=== PATIENT | male | born 1985 | race African-American/Black ===

== ENCOUNTER 2017-11-05 08:53 | Emergency (ER) | payer OTHER, MEDICAID, SELFPAY ==
[2017-11-05 08:54] VITALS: BP 144/79; PULSE 70; RESP 16; TEMP 36.8; O2SAT 98; BMI 29.5
--- NOTE | 2017-11-05 09:03 | RAD_ITS ---
STUDY: X-RAY - LEFT ANKLE REASON FOR EXAM: Male, 32 years old. Ankle trauma yesterday. TECHNIQUE: 3 view(s) of the ankle. COMPARISON: None. FINDINGS: Osseous alignments are anatomic. The ankle mortise is preserved. There is no acute fracture lucency. There is no cortical step-off. There is mild nonspecific lateral soft tissue swelling. RAD/Ankle min 3 Views IMPRESSION: No radiographically evident acute osseous abnormality. Mild nonspecific lateral soft tissue swelling. Electronically Signed: Jonny Gibson MD at 9:33 EDT , Service support ,
--- NOTE | 2017-11-05 09:06 | ED.DCSUM_ITS ---
- ER Visit Summary Date of Service: 11/05/17 Chief Complaint: Injury left ankle History of Present Illness: The patient is a 32 M who presents to the emergency part with left ankle pain secondary to injury that occurred yesterday while playing basketball. He had a plantar inversion mechanism injury. He localizes the pain to the left ankle. He states movement and weightbearing causes discomfort. He states he is unable to ambulate. He denies paresthesia, anesthesia or motor weakness. He has no other complaints. Please read written note. Physical Examination: Vital signs are marked for an elevated blood pressure 144/ 79. Does appear uncomfortable. The left ankle is swollen. There is pain no patient distal 2-3 cm lateral malleolus. There is no discomfort over the medial malleolus. There is no pain palpation over the base of the fifth metatarsal. DP and PT pulses are palpable. There is no laxity with drawer testing. Test Results: Three-view x-ray of the ankle reveals soft tissue swelling with out evidence of fracture, subluxation or widening of the mortise. Emergency Department Course and Treatment: X-ray of the ankle was obtained to evaluate for fracture. He was medicated with Naprosyn 500 mg and one [place] tablet. Treatment Plan: Ice, elevation and anti-inflammatory medication Disposition: Discharge to home Impression: Acute anterior talofibular left ankle sprain This note was generated with Cine[employer] dictation software. It may contain incorrect words, spelling, and punctuation that were not noted in review of the chart prior to signing ED Disposition - Plan for ED Patient: Disposition: Home or Assisted Living Chief Complaint: Lower Extremity Injury Instructions: ED Sprain Ankle W X Ray Prescriptions: Naproxen [Naprosyn] 500 mg PO BID #10 tab Referrals: Denny Benton MD [Primary Care Provider] - 10-14 Days if not better Additional Instructions: Apply ice 20-30 minutes at a time 6-8 times a day for the next 2-3 days. Drawing the alphabet with your foot 4-6 times a day. Take Naprosyn for discomfort. You may have pain for 1-4 weeks. Recommend no inclines, latter work until pain free. Your prescription was electronically transmitted to [facility]
[2017-11-05] MEDS: Naproxen 500 MG Tablet PO (09:13)
[2017-11-05] MEDS: HYDROcodone Bitartrate/Apap 5/325 Tablet PO (09:13)
[2017-11-05 10:16] VITALS: PULSE 84; RESP 18; O2SAT 99
--- NOTE | 2017-11-05 10:17 | ED.RN ---
THIS NURSE REVIEWED D/C INSTRUCTIONS WITH PT. PT VERBALIZED UNDERSTANDING OF INSTRUCTIONS. PT DENIES FURTHER NEEDS OR QUESTIONS AT THIS TIME. PT AMBULATES FROM ROOM ON OWN WITHOUT ASSISTANCE FROM STAFF
== END 2017-11-05 10:18 | disposition home or self-care (01) ==
PROVIDERS: Emergency Provider Emergency Medicine; Family Provider Family Medicine; PCP Family Medicine
DX: S93.492A Sprain of other ligament of left ankle, initial encounter (principal); X50.1XXA Overexertion from prolonged static or awkward postures, initial encounter; Y93.67 Activity, basketball; Y92.9 Unspecified place or not applicable; Y99.9 Unspecified external cause status; Z72.0 Tobacco use
CPT/HCPCS: 73610; 99283

== ENCOUNTER 2018-11-12 08:47 | Emergency (ER) | payer OTHER, SELFPAY ==
[2018-11-12 08:48] VITALS: BP 144/80; PULSE 68; RESP 18; TEMP 36.6; O2SAT 99; BMI 28.7
--- NOTE | 2018-11-12 08:56 | ED.VIS.GEN ---
History of Present Illness Chief Complaint: Abscess Informant: Patient Onset: Weeks Context: Gradual Onset Timing: Continuous Quality: Bump anterior left neck Location: Anterior left neck Current Severity: annoyance Worsened by: Nothing Relieved by: Nothing Associated Symptoms: No associated symptoms Narrative: Patient has a bump left anterior neck that has gotten larger in size. He denies fever, chills, night sweats or weight loss. He denies history rheumatic fever, murmur, SBE, IV drug use or being immune suppressed. He is not diabetic. He denies change in voice, difficulty swallowing or breathing. Prior similar symptoms: No Recent Illness/Hospitalization: No Past Medical History - Allergies and Home Meds Allergies/Adverse Reactions: Allergies No Known Allergies Allergy (Verified 11/12/18 08:49) Primary Care Physician: Denny Benton MD [Primary Care Provider] - Prior records reviewed: Yes - Prior abscess, buttocks Surgical History: noncontributory Lives: Alone Smoking Status: Current every day smoker Alcohol: None Drugs: None Review of Systems General: Denies: Chills, Fever, Malaise, Sweats, Weight loss ENT: Reports: Sore throat, - - No dysphonia or dysphasia Cardiovascular: Denies: Chest pain, Palpitations Respiratory: Denies: Dyspnea, Cough, Dyspnea on exertion Musculoskeletal: Denies: Myalgias, Arthralgias, Neck pain Skin: Reports: Wounds Hematologic: Denies: Easy bruising, Easy bleeding Allergy: Denies: Uticaria, Swelling of the mouth, Swelling of the tongue Physical Exam Vital Signs/Narrative: Vital Signs Temp Pulse Resp BP Pulse Ox 11/12/18 08:48 97.9 F 68 18 144/80 H 99 Inital Vital Signs reviewed: Yes General: Well nourished, Well developed, No Acute Distress Head: Normocephalic, Atraumatic Eyes: Perrl, EOMI. Negative for: Pale conjunctiva, Scleral icterus, - ENT: Moist mucous membranes, No rhinorrhea, TM's clear Neck: Supple, Nontender, No lymphadenopathy, No JVD, - - Trachea is midline. There is no stridor. There is a palpable mass that probably represents sebaceous cyst versus subcutaneous abscess. Cardiovascular: Regular rate, Regular rhythm, No murmurs, Normal S1, Normal S2 Respiratory: No distress, CTA bilaterally, Chest nontender Skin: Normal color, No rash. Negative for: Cyanosis, Jaundice, Rash Psychological: Normal affect, Normal Mood Diagnostic/Tx/Re-eval - Medical Decision Making Patient has a abscess versus sebaceous cyst anterior left neck. Patient was informed treatment is incision and drainage. Patient was given opportunity ask questions and none were asked. Procedures Procedure(s): The anterior neck was prepped draped sterile manner. The area was anesthetized with 1% lidocaine by local traction. Incision was made with 15 blade. Approximately 1.5 cc of green thick purulent material drained from the site. Blunt dissection was undertaken. Since there is no evidence of cellulitis antibiotics were not prescribed. ED Disposition - Plan for ED Patient: Disposition: Home or Assisted Living Diagnosis: Subcutaneous abscess Instructions: ED Abscess IandD Referrals: Denny Benton MD [Primary Care Provider] - 3-5 Days if not improving
== END 2018-11-12 09:30 | disposition home or self-care (01) ==
PROVIDERS: Emergency Provider Emergency Medicine; Family Provider Family Medicine; PCP Family Medicine
DX: L02.11 Cutaneous abscess of neck (principal); F17.200 Nicotine dependence, unspecified, uncomplicated
CPT/HCPCS: 10060; 99282

== ENCOUNTER 2019-01-07 09:10 | Emergency (ER) | payer OTHER, MEDICAID, SELFPAY ==
[2019-01-07 09:11] VITALS: BP 152/79; PULSE 72; RESP 26; TEMP 36.7; O2SAT 98; BMI 28.4
--- NOTE | 2019-01-07 09:34 | ED.VISSUMM ---
- ER Visit Summary Date of Service: 01/07/19 Chief Complaint: Cough History of Present Illness: The patient is a 33 M history of exercise-induced asthma as a kid but is not a problem lately. He said since Sunday he developed a cough of greenish and yellowish sputum. Burning discomfort when he coughs in his chest. And shortness of breath at times. He denies any exertional chest pain no hemoptysis. Subjectively he thought he had a fever and chills but no documented temperature. No leg pain or swelling. Physical Examination: Well-appearing young male. Vital signs are stable afebrile. Pulse ox 98%. HEENT exam unremarkable. Posterior pharynx moist and pink no erythema or exudate. Neck nontender no JVD no lymphadenopathy. Lungs cough but no rales, rhonchi or wheezing. Heart regular rhythm no murmur. Rate about 70. Abdomen soft nontender. Patient is moving all 4 extremities. Neurovascularly intact. Calves are nontender without edema or cords. Back exam normal. Skin exam normal. Neurologic exam normal. Test Results: Chest x-ray 2 views shows no acute abnormality. No infiltrate. Normal cardiac silhouette. Red blood per myself and radiologist. BGT obtained due to family history of diabetes and patient states he had urinary frequency without any discomfort lately. Emergency Department Course and Treatment: Patient treated with a DuoNeb aerosol. Treatment Plan: Patient with viral bronchitis with bronchospasm.. Prednisone 4 times a day for the next 5 days. Tylenol and/or Motrin for pain. Disposition: Discharge Impression: Acute viral bronchitis This note was generated with [employer] dictation software. It may contain incorrect words, spelling, and punctuation that were not noted in review of the chart prior to signing ED Disposition - Plan for ED Patient: Referrals: Denny Benton MD [Primary Care Provider] -
[2019-01-07] MEDS: Ipratropium/Albuterol Sulfate 3 ML AMPUL.NEB INHALATION (09:44)
[2019-01-07 09:45] VITALS: PULSE 72; RESP 18
--- NOTE | 2019-01-07 10:00 | RAD_ITS ---
STUDY: X-RAY CHEST REASON FOR EXAM: Male, 33 years old. TECHNIQUE: 2 views COMPARISON: None. FINDINGS: The lungs are clear and expanded. There is no demonstrated pleural abnormality. Normal size heart. Normal mediastinum and ivanna. Normal visualized pulmonary arteries. Normal visualized aortic arch and descending thoracic aorta. Normal visualized thoracic spine. Normal visualized ribs, clavicles, and shoulders. There is no demonstrated abnormality of the visualized soft tissue structures of the upper abdomen. RAD/Chest PA and Lateral IMPRESSION: Normal x-ray examination of the chest. Electronically Signed: Simón Tenorio, at 10:15 EDT Tel , Service support ,
--- NOTE | 2019-01-07 10:41 | ED.DEP ---
ED Disposition - Plan for ED Patient: Disposition: Home or Assisted Living Instructions: BRONCHITIS with Wheezing (Adult) Prescriptions: Prednisone [Deltasone] 40 mg PO DAILY 7 Days tab Prescription Printed Azithromycin [Zithromax Z-Mick] 250 mg PO UD #1 box Prescription Printed Referrals: Denny Benton MD [Primary Care Provider] - 1 Week if not improving Additional Instructions: Prednisone daily degree decrease the inflammation in your lungs and the wheezing. Absolutely stop smoking !! Your written a prescription for Zithromax which is an antibiotic most likely this is a virus. You do not need to get that filled unless is not not improving after 1 week.
[2019-01-07 10:59] VITALS: PULSE 97; RESP 16; O2SAT 100
[2019-01-07 11:01] LABS: Bedside Glucose 123 mg/dL (70-110)
== END 2019-01-07 11:00 | disposition home or self-care (01) ==
PROVIDERS: Emergency Provider Emergency Medicine; Family Provider Family Medicine; PCP Family Medicine
DX: J20.8 Acute bronchitis due to other specified organisms (principal); Z72.0 Tobacco use; Z83.3 Family history of diabetes mellitus
CPT/HCPCS: 71046; 82962; 94640; 99282

== ENCOUNTER 2020-11-06 20:55 | Emergency (ER) | payer MEDICAID, SELFPAY ==
[2020-11-06 20:56] VITALS: BP 120/82; PULSE 81; RESP 16; TEMP 36.2; O2SAT 98; BMI 30.2
--- NOTE | 2020-11-06 21:38 | ED.VIS.GEN ---
History of Present Illness Chief Complaint: Wound Informant: Patient Narrative: Patient presents with pain swelling and redness of his left middle finger. He tells me that he has been getting intermittent hard tissue in the creases of his volar finger folds. He states this particular 1 he has been digging at will get hard material out but that it reoccurs. The other ones he tends to did get and they go away. 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 He states that the last night this particular one on his left middle finger became swollen and red and painful. She has had prior MRSA abscesses before. Past Medical History - Allergies and Home Meds Allergies/Adverse Reactions: Allergies No Known Allergies Allergy (Verified 11/06/20 20:58) Primary Care Physician: Angela Recinos MD [NON-STAFF] - As soon as possible Surgical History: noncontributory Lives: Spouse/ Significant Other Smoking Status: Current every day smoker Drugs: None Review of Systems General: Denies: Chills, Fever, Sweats Eyes: Denies: Visual changes - bilaterally, Diplopia ENT: Denies: Rhinorrhea, Sore throat Cardiovascular: Denies: Chest pain, Palpitations Respiratory: Denies: Dyspnea, Cough, Dyspnea on exertion Gastrointestinal: Denies: Abdominal pain, Nausea, Vomiting, Diarrhea, Melena, Hematochezia Genitourinary: Denies: Dysuria, Hematuria, Frequency Musculoskeletal: Reports: Extremity Pain. Denies: Back pain Skin: Reports: Wounds. Denies: Rash Neurological: Denies: Headache, Weakness, Numbness Physical Exam Vital Signs/Narrative: Vital Signs Temp Pulse Resp BP Pulse Ox 11/06/20 20:56 97.1 F L 81 16 120/82 H 98 Inital Vital Signs reviewed: Yes General: Well nourished, Well developed, No Acute Distress Head: Normocephalic, Atraumatic Eyes: Perrl, EOMI ENT: Moist mucous membranes, No rhinorrhea Neck: Supple, Nontender Cardiovascular: Regular rate, Regular rhythm, No murmurs Respiratory: No distress, CTA bilaterally, Chest nontender Abdomen: Soft, Nontender, Nondistended, Normal bowel sounds Back: Nontender, Normal Inspection Extremities: Nontender, No edema Skin: Normal color, No rash, - - Gated on the volar surface of the left middle finger at the DIP joint is an area that appears to be scar tissue that is hard and circular. It has surrounding erythema and mild swelling. Neurological: Alert, Oriented x3, Cranial nerves II-XII grossly intact, Normal Strength, Normal Sensation Psychological: Normal affect, Normal Mood Diagnostic/Tx/Re-eval - Medical Decision Making Patient underwent digital block using 1% lidocaine. Once good anesthesia was present I lifted up the top surface of this hard callused material. After 2 microplanes were made I came to an area of pus. I did not see any obvious foreign bodies. This pus was cultured. I then went underneath that this area of possibly can found granulation-like tissue and excised that to the layer where it seemed that it was normal tissue and mildly bleeding. I question whether or not there could be some microscopic foreign bodies in here at the body is scarring over and trying to expel. But given his redness and swelling I think he most likely also has a cellulitis. Patient was started on Bactrim given his history of MRSA. I have advised that he may need to follow-up with hand surgery or dermatology. His significant other states that they are already patients at dermatology and they will go there first. ED Disposition - Plan for ED Patient: Disposition: Home or Assisted Living Diagnosis: Cellulitis of finger Instructions: ED Cellulitis Prescriptions: Smz/Tmp Ds [Bactrim Ds] 1 tablet PO BID #20 tab Transmission Status: Received by SINDY MCKEON RD Hydrocodone Bitart/Apap 5-325 [[place] 5MG-325MG] 1 tablet PO Q6H PRN PRN 3 Days #10 tablet PRN Reason: Pain Transmission Status: Received by SINDY MCKEON RD Referrals: Angela Recinos MD [NON-STAFF] - As soon as possible
[2020-11-06] MEDS: Lidocaine 1% (20 ml mdv) 20 ML Vial 4 ML INFILT (21:57)
[2020-11-06] MEDS: Smz/Tmp Ds Tablet 1 TABLET PO (21:58)
== END 2020-11-06 22:00 | disposition home or self-care (01) ==
PROVIDERS: Emergency Provider Emergency Medicine; PCP Family Medicine
DX: M79.89 Other specified soft tissue disorders (principal); L03.012 Cellulitis of left finger; Z86.14 Personal history of Methicillin resistant Staphylococcus aureus infection; F17.200 Nicotine dependence, unspecified, uncomplicated
CPT/HCPCS: 87070; 87205; 99283

== ENCOUNTER 2021-01-24 09:10 | Emergency (ER) | payer MEDICAID, SELFPAY ==
[2021-01-24 09:10] VITALS: BP 130/79; PULSE 77; RESP 19; TEMP 36.4; O2SAT 99; BMI 28.1
--- NOTE | 2021-01-24 09:27 | EKG12_ITS ---
Test Reason : CHEST PAIN,SOB Blood Pressure : / mmHG Vent. Rate : 070 BPM Atrial Rate : 070 BPM P-R Int : 172 ms QRS Dur : 082 ms QT Int : 376 ms P-R-T Axes : 063 099 030 degrees QTc Int : 406 ms Normal sinus rhythm Rightward axis Borderline ECG Confirmed by ANITA BROWN, HEIDI ([id number]), visual effects editor TIAGO DONAHUE ([id number]) on 01/26/2021 9:25:03 AM Referred By: BB Confirmed By:HEIDI HOWARD MD
--- NOTE | 2021-01-24 09:29 | EX.ED.DYSGE1 ---
HPI History of Present Illness Chief Complaint: Cold Sx Informant: patient and spouse/S.O. Onset/Context/Timing Onset: Days Context: Gradual Onset Timing: Continuous Current Severity: Mild Maximum Severity: Moderate Narrative Narrative: 35-year-old male no significant past medical or surgical history. Presents today complaining of body aches since last . Initially thought he was getting a cold. He has had sweats and chills. Nausea and vomiting. He is also developed epigastric abdominal pain. Denies diarrhea or constipation. No dysuria. No melena. No prior history of similar symptoms. He did not get a Covid shot. Prior similar symptoms: No Recent Illness/Hospitalization: No PFSH PFSH no medical history Home Medications sulfamethoxazole-trimethoprim 1 tablet PO BID #20 tab 11/06/20 [Rx Last Taken Unknown] levofloxacin 750 mg PO DAILY #7 tab 01/24/21 [Rx Last Taken Unknown] ondansetron 4 mg PO Q8H PRN 4 Days #7 tab 01/24/21 [Rx Last Taken Unknown] Allergy/AdvReac Type Severity Reaction Status Date / Time No Known Allergies Allergy Verified 01/24/21 09:12 no surgical history Social History Smoking Status: Current every day smoker tobacco type: cigarettes ROS ROS ED ROS Narrative Cough, sweats and chills. Nausea and vomiting. Primarily the last 4 days. Review of Systems ROS Unobtainable: Denies due to encephalopathy Constitutional Constitutional ED: Reports chills and sweats; Denies fever(s) Eyes Eyes: Denies change in vision ENT ENT ED: Denies ear pain or sore throat Cardiovascular Cardiovascular: Reports chest pain; Denies palpitations Respiratory/Chest Respiratory/Chest: Reports cough; Denies dyspnea Gastrointestinal Gastrointestinal: Reports abdominal pain, nausea and vomiting; Denies constipation, diarrhea or melena Genitourinary Genitourinary ED: Denies dysuria or hematuria Musculoskeletal Musculoskeletal: Denies arthralgias or myalgias Integumentary Denies abscess or rash Neurologic Neurologic: Denies headache(s) Psychiatric Psychiatric: Denies depression Endocrine Endocrinology: Denies polyuria Allergic/Immunologic Allergic/Immunologic ED: Denies urticaria EXAM Physical Exam Narrative Exam Narrative: 35-year-old male sitting in a chair that we moved to the bed in the room. Accompanied by significant other. Vital signs are stable afebrile. No acute distress. HEENT exam unremarkable. Moist with memories. Neck nontender no lymphadenopathy. Lungs clear to auscultation bilaterally. Abdomen soft. Nondistended normal bowel sounds no peritoneal signs. He does have a epigastric tenderness only. The right upper and right lower quadrants are unremarkable. No signs of obstruction. No mass. Moving all 4 extremities. Neurovascular intact. No edema. Back nontender. Neurologically is awake and alert. No focal motor deficits. NIH is 0. Const Vital Signs: 01/24/21 09:10 01/24/21 09:27 01/24/21 10:43 Temperature 97.6 F L 99.2 F H Temperature Source Temporal Temporal Pulse Rate 77 77 Respiratory Rate 19 H 26 H Respiratory Pattern Tachypnea Blood Pressure 130/79 H 125/72 H Blood Pressure Mean 96 89 Pulse Ox 99 97 Oxygen Delivery Method Room Air Room Air HEENT Reports moist mucous membranes Negative for trauma or tenderness Eyes PERRL and EOMs intact bilaterally Neck no lymphadenopathy, supple and no JVD General: Negative for tenderness Chest Wall inspection of chest normal and palpation of chest normal Resp normal respiratory effort and clear to auscultation bilaterally Effort and Inspection: Negative for pain with movement Auscultation: Negative for rales, rhonchi or wheezes Cardio regular rate, regular rhythm, S1 normal heart sound, S2 normal heart sound and no murmurs GI normal to inspection, nondistended, normoactive bowel sounds, non-distended and no masses; Negative for non-tender Auscultation: normoactive bowel sounds Palpation: soft and tender; Negative for guarding or rebound tenderness present Back/Spine no CVA tenderness Cervical Spine: cervical spine tenderness Extremity normal to inspection General Extremety ED: Negative for edema or tenderness General Extremity: Negative for edema Neuro oriented x3 and CN's II-XII intact bilaterally Sensorium / Orientation: alert; Negative for orientation impaired, lethargic or stuporous Motor Exam: strength 5/5 throughout Psych mental status grossly normal Attitude: No agitated Mood & Affect: Negative for depressed or tearful Skin no rashes or lesions noted and no wounds MDM MDM MDM Narrative Medical decision making narrative: 35-year-old male no significant past medical or surgical history. Has had combination of symptoms now appears to have more epigastric abdominal pain with nausea and vomiting. Pancreatitis in the differential diagnosis versus gastritis versus ulcer versus gallbladder or liver disease versus other etiologies. He also be worked up from a respiratory and atypical cardiac presentation standpoint. To be given IV fluids, Zofran and morphine for pain. Repeat exam at 11 AM patient is feeling much better after the medication. We are awaiting lab and imaging results. Repeat exam patient is doing well at 11:23 AM. To be discharged home. Went over his test results that I went over his x-ray with both he and his significant other. He will be treated for a left upper lobe pneumonia with Levaquin daily. First dose given in the ER. Lab Data Attestation: I reviewed the patient's lab results. Lab results narrative: CBC normal white count 7. Hemoglobin 15. Sodium 131. Gap at 9 creatinine slightly elevated 1.38. Liver enzymes are slightly elevated. Lipase is normal 128 Labs: Laboratory Results - last 24 hr 01/24/21 01/24/21 09:30 09:30 WBC 7.9 RBC 5.77 Hgb 15.6 Hct 46.7 MCV 80.9 MCH 27.0 MCHC 33.4 RDW Std Deviation 40.5 RDW Coeff of Hari 13.9 Plt Count 255 MPV 10.4 Immature Gran % (Auto) 0.400 Neut % (Auto) 62.2 Lymph % (Auto) 19.6 [place] % (Auto) 17.2 H Eos % (Auto) 0.1 Baso % (Auto) 0.5 Absolute Neuts (auto) 4.9 Absolute Lymphs (auto) 1.55 Nucleated RBC % 0 Sodium 131 L Potassium 4.0 Chloride 95 L Carbon Dioxide 27.0 Anion Gap 9 BUN 11 Creatinine 1.38 H Estim Creat Clear Calc 74.00 Est GFR (MDRD) Af Amer 75 Est GFR (MDRD) Non-Af 62 BUN/Creatinine Ratio 8.0 L Glucose 110 H Calcium 9.8 Total Bilirubin 0.50 AST 110 H ALT 137 H Alkaline Phosphatase 110 Troponin I High Sens 4.0 Total Protein 9.0 H Albumin 3.3 Globulin 5.7 H Albumin/Globulin Ratio 0.6 L Lipase 128 Radiography Chest X-Ray - ED: 1 View, Read by ED Physician, Read by Radiologist and Left Infiltrate Diagnostic Testing: Radiology Impression Chest X-Ray 01/24/21 10:05 IMPRESSION: Left upper lobe infiltrate. Radiographic follow-up is recommended. Electronically Signed: José Miguel Yanes MD at 10:19 EDT , Service support , 1 view chest x-ray interpreted myself and radiologist shows a left upper lobe pneumonia. It is changed compared to a prior. Rhythm Strip Rhythm Strip: Sinus Rhythm Rate: 70 Ectopy: None EKG Initial EKG: Attestation: I personally reviewed and interpreted this EKG as follows: Interpretation: Sinus Rhythm and No Acute Injury Pattern Comments: Normal sinus rhythm rate of 70 no acute signs of MT nor ischemia. Prior EKG tracings: not available for review Prior: No Prior Discharge Plan Triage Chief Complaint: Cold Sx ED Provider: Brody Black Dx/Rx/DC Orders Clinical Impression: Pneumonia Instructions: ED Pneumonia (Adult) Prescriptions: New levofloxacin 750 mg tablet 750 mg PO DAILY Qty: 7 RF: 0 ondansetron 4 mg tablet,disintegrating 4 mg PO Q8H PRN (Reason: nausea and vomiting) 4 Days Qty: 7 RF: 0 No Action sulfamethoxazole-trimethoprim 1 TABLET tablet 1 tablet PO BID Qty: 20 RF: 0 Primary Care Provider: Denny Benton Referrals: Denny Benton MD [Primary Care Provider] - 3-5 Days Activity Restrictions/Additional Instructions: Plenty of fluids and rest. Tylenol and/or Motrin for body aches and fever. Return emergency department if feeling a lot worse. It will take several days for you to start feeling somewhat better and may take 1-2 or 3 weeks for you to get back to normal. Plenty of fluids and rest. Follow-up with your doctor to ensure you are improving. Levaquin is antibiotic you will take 1 a day start tomorrow. Take it with food on your stomach after breakfast. Zofran only if needed for nausea. Disposition Disposition: Home, Self Care
[2021-01-24] MEDS: morphine 8 MG/ML Syringe IV (09:44)
[2021-01-24] MEDS: 0.9% Normal Saline 1,000 ML 1000 ML IV (09:44)
[2021-01-24] MEDS: Ondansetron 4 MG/2 ML Vial IV (09:44)
[2021-01-24 09:45] LABS: Absolute Lymphocyte Count 1.55 X10^3/uL (0.83-4.51); Absolute Neutrophil Count 4.9 X10^3/uL (2.0-7.7); Basophil# 0.04 X10^3/uL; Basophil% 0.5 % (0-1); Eosinophil# 0.01 X10^3/uL; Eosinophils% 0.1 % (0-5); Hematocrit 46.7 % (40-54); Hemoglobin 15.6 g/dL (13.0-16.5); Lymphocyte # 1.55 X10^3/ul (0.83-4.51); Lymphocyte % 19.6 % (19-41); Mean Corp Hgb Conc 33.4 g/dL (32-36); Mean Corpuscular Volume 80.9 fL (80-94); Mean Platelet Vol. 10.4 fl (6.2-12.0); Monocyte# 1.36 X10^3/uL; Monocyte% 17.2 % (0-10); NRBC Flagged by Analyzer 0 % (0-5); Neutrophil % 62.2 % (47-70); Platelet Count 255 K/mm3 (150-450); RBC Distribution Width CV 13.9 % (11.6-14.6); RBC Distribution Width SD 40.5 fl (35.1-43.9); Red Blood Count 5.77 M/mm3 (4.6-6.2); White Blood Count 7.9 K/mm3 (4.4-11.0)
[2021-01-24 10:03] LABS: ALB/GLOB Ratio 0.6 RATIO (0.9-2.4); AST(SGOT) 110 U/L (15-37); Alanine Aminotransfer ALT/SGPT 137 U/L (16-61); Albumin, Serum 3.3 g/dL (3.2-5.0); Alkaline Phosphatase 110 U/L (45-117); Anion Gap 9 (5-15); BUN 11 mg/dL (7-18); Calcium,Total 9.8 mg/dL (8.5-10.1); Chloride 95 mmol/L (98-107); Creatinine, Serum 1.38 mg/dL (0.70-1.30); EST Glomerular Filtration Rate 62 mL/min (>60); Est Glom Filt Rate - Afr Amer 75 mL/min (>60); Globulin 5.7 g/dL (2.2-4.2); Glucose 110 mg/dL (74-106); Lipase 128 U/L (73-393); Sodium Level 131 mmol/L (136-145)
--- NOTE | 2021-01-24 10:05 | RAD_ITS ---
STUDY: X-RAY CHEST REASON FOR EXAM: Male, 35 years old. CP and cough TECHNIQUE: Single AP portable view of the chest. COMPARISON: Comparison is made with prior study dated 01/07/2019. FINDINGS: EKG electrodes are seen. There now is evidence of infiltration in the left upper lobe. Radiographic follow-up is recommended. There is no demonstrated pleural abnormality. Normal size heart. Normal mediastinum and ivanna. Normal visualized pulmonary arteries. Normal visualized aortic arch and descending thoracic aorta. Normal visualized thoracic spine. Normal visualized ribs, clavicles, and shoulders. There is no demonstrated abnormality of the visualized soft tissue structures of the upper abdomen. RAD/Chest 1 View (Portable) IMPRESSION: Left upper lobe infiltrate. Radiographic follow-up is recommended. Electronically Signed: José Miguel Yanes MD at 10:19 EDT , Service support ,
[2021-01-24 10:43] VITALS: BP 125/72; PULSE 77; RESP 26; TEMP 37.3; O2SAT 97
[2021-01-24] MEDS: levoFLOXacin 750 MG Tablet PO (12:01)
[2021-01-24 12:05] VITALS: BP 119/71; PULSE 78; RESP 16; TEMP 37.2
== END 2021-01-24 12:06 | disposition home or self-care (01) ==
PROVIDERS: Emergency Provider Emergency Medicine; PCP Family Medicine
DX: J18.9 Pneumonia, unspecified organism (principal); F17.210 Nicotine dependence, cigarettes, uncomplicated
CPT/HCPCS: 71045; 80053; 83690; 84484; 85025; 87426; 93005; 96361; 96374; 96375; 99285; J7030; A4216; J2405

== ENCOUNTER 2021-09-29 08:51 | Emergency (ER) | payer MEDICAID, SELFPAY ==
[2021-09-29 08:51] VITALS: BP 170/92; PULSE 64; RESP 18; TEMP 36.6; O2SAT 100; BMI 29.5
--- NOTE | 2021-09-29 09:30 | US_ITS ---
STUDY: ABDOMINAL ULTRASOUND - RIGHT UPPER QUADRANT REASON FOR VISIT: Male, 36 years old PAIN TECHNIQUE: Ultrasound evaluation of the right upper quadrant was performed with real-time and static camp-scale imaging. TECHNICAL QUALITY: Adequate. COMPARISON: None. FINDINGS: Liver: The liver measures 10.6 cm. There is normal echogenicity of the liver. The bile ducts are within normal limits. There is hepatic color flow. The direction of portal flow is hepatopetal. There is no demonstrated mass lesion. Gallbladder: Normal distended gallbladder. The gallbladder wall measures 2 mm. There is a negative sonographic Loya''s sign. There is no pericholecystic fluid. There are no gallstones. Common Bile Duct (C.B.D.): The common bile duct measures 4 mm. Pancreas: Normal size of the head, body and tail of the pancreas. There is normal echogenicity of the pancreas. There is no demonstrated pancreatic mass or cyst. Right Kidney: Normal size of the right kidney. The right kidney measures 11.8 cm. Normal renal cortex. The right cortex measures 1.8 cm. There is no demonstrated renal mass or cyst. There is no right hydronephrosis. US/Gallbladder IMPRESSION: Normal right upper quadrant ultrasound examination. Electronically Signed: Bernard Victoria MD at 10:33 EDT ,
--- NOTE | 2021-09-29 09:31 | EDS_ITS ---
HPI HPI - GI History of Present Illness Chief Complaint: Abd Pain Narrative Narrative: Patient who denies significant past medical history presents with epigastric to right upper quadrant abdominal pain that has had since 4:00 in the morning yesterday. This was over 17 hours ago when it began. He states he has had constant pain since then, describing it as both dull, achy, crampy, and sharp and stabbing at times. He is nauseated and vomited 8-9 times without any blood in his emesis. He did not have a bowel movement yesterday or the day before. He is not having diarrhea. He denies fevers or chills. No exacerbating or alleviating factors. He did not eat yesterday so he states he cannot tell whether food makes it better or worse. No prior abdominal surgeries. He does occasionally drink alcohol, but states none yesterday. PFSH PFSH Home Medications famotidine [Pepcid] 20 mg PO DAILY #14 tab 09/29/21 [Rx Last Taken Unknown] ondansetron 4 mg PO Q6H PRN #14 tab 09/29/21 [Rx Last Taken Unknown] Allergy/AdvReac Type Severity Reaction Status Date / Time No Known Allergies Allergy Verified 09/29/21 08:53 Social History Smoking Status: Current every day smoker tobacco type: cigarettes ROS ROS ED ROS Narrative Constitutional: No fever, no chills. HEENT: No sore throat. No neck pain. No loss of vision. No rhinorrhea. Cardiovascular: No chest pain. No palpitations. No pedal edema. Respiratory: No cough, no shortness of breath. Abdominal: Epigastric to right upper quadrant abdominal pain. Positive nausea. 8-9 episodes of nonbloody vomiting. Genitourinary: No dysuria. No hematuria. Musculoskeletal: No myalgias. No arthralgias. Neurologic: No headaches. No dizziness. No lightheadedness. Skin: No rash. No change in color. Psychiatric: No depression. No anxiety. EXAM Physical Exam Narrative Exam Narrative: Afebrile. Vital signs noted. HEENT: Normocephalic. Atraumatic. PERRL, EOMI. Neck soft and supple. No point tenderness or step off. Cardiovascular: Regular rate and rhythm. No murmurs, rubs, or gallops appreciated. Respiratory: No tachypnea. Lungs clear to auscultation bilaterally. Gastrointestinal: Abdomen soft, with tenderness to palpation in epigastrium to right upper quadrant, with normoactive bowel sounds. No rebound or guarding. Negative Loya sign. Neurological: Awake. Alert. Nonfocal, nonlateralizing. Skin: No rash. Normal color. No pallor. Musculoskeletal: No pedal edema. Full range of motion extremities. Const Vital Signs: 09/29/21 08:51 Temperature 97.9 F Temperature Source Temporal Pulse Rate 64 Respiratory Rate 18 Blood Pressure 170/92 H Blood Pressure Mean 118 Pulse Ox 100 Oxygen Delivery Method Room Air MDM MDM MDM Narrative Medical decision making narrative: Comprehensive work-up was pursued. Concern is for pancreatitis versus cholecystitis or choledocholithiasis. He was administered normal saline intravenously along with morphine and ondansetron. I will obtain CBC, CMP, lipase, urinalysis, and gallbladder ultrasound. CBC shows normal white count of 6.1. Hemoglobin normal at 15.8. Platelet count also normal at 269. CMP is grossly unremarkable. Glucose appropriately elevated at 124 with a normal anion gap of 5. LFTs are normal. Lipase also normal at 159. Gallbladder ultrasound is normal. Patient required an additional dose of morphine. He was also given a GI cocktail which seemed to improve his symptoms more so. I do feel that he may have gastritis versus peptic ulcer disease. He will be given prescription for famotidine and for on dansetron. He was referred to gastroenterology. Repeat examination shows his abdomen to remain soft and he feels improved and can speak in full sentences and is not writhing around in pain any longer. Return instructions to the emergency department were reviewed. Disposition is discharged home in stable condition. Lab Data Attestation: I reviewed the patient's lab results. Labs: Laboratory Results - last 24 hr 09/29/21 09/29/21 09:42 09:42 WBC 6.1 RBC 5.69 Hgb 15.8 Hct 47.6 MCV 83.7 MCH 27.8 MCHC 33.2 RDW Std Deviation 45.3 H RDW Coeff of Hari 15.0 H Plt Count 269 MPV 10.4 Immature Gran % (Auto) 0.500 Neut % (Auto) 68.2 Lymph % (Auto) 22.0 [place] % (Auto) 8.3 Eos % (Auto) 0.7 Baso % (Auto) 0.3 Absolute Neuts (auto) 4.2 Absolute Lymphs (auto) 1.35 Nucleated RBC % 0 Sodium 138 Potassium 3.7 Chloride 107 Carbon Dioxide 26.0 Anion Gap 5 BUN 8 Creatinine 1.26 Estim Creat Clear Calc 80.27 Est GFR (MDRD) Af Amer 83 Est GFR (MDRD) Non-Af 68 BUN/Creatinine Ratio 6.3 L Glucose 124 H Calcium 9.5 Total Bilirubin 0.40 AST 20 ALT 37 Alkaline Phosphatase 49 Total Protein 8.2 Albumin 4.6 Globulin 3.6 Albumin/Globulin Ratio 1.3 Lipase 159 Radiography Diagnostic Testing: Clinical Impression(s) from Imaging Studies Gallbladder Ultrasound 09/29/21 09:30 IMPRESSION: Normal right upper quadrant ultrasound examination. Electronically Signed: Bernard Victoria MD at 10:33 EDT Reading Location ID and State: [address] [place] [address] Tel , Service support , Discharge Plan Triage Chief Complaint: Abd Pain ED Provider: Justin Babb Dx/Rx/DC Orders Clinical Impression: Epigastric pain, Gastritis Instructions: ED PEPTIC ULCER vs GASTRITIS, ED Epigastric Pain Uncertain Cause Prescriptions: New famotidine [Pepcid] 20 mg tablet 20 mg PO DAILY Qty: 14 RF: 0 ondansetron 4 mg tablet,disintegrating 4 mg PO Q6H PRN (Reason: nausea and vomiting) Qty: 14 RF: 0 Primary Care Provider: Denny Benton Referrals: Denny Benton MD [Primary Care Provider] - 3-5 Days if not improving Gamaliel Richardson DO [STAFF PHYSICIAN] - As soon as possible Disposition Disposition: Home, Self Care
[2021-09-29] MEDS: Ondansetron 4 MG/2 ML Vial IV (09:40)
[2021-09-29] MEDS: 0.9% Normal Saline 1,000 ML 1000 ML IV (09:40)
[2021-09-29] MEDS: Morphine 4 MG/ML Syringe IV ×2 (09:40→10:44)
[2021-09-29 09:52] LABS: Absolute Lymphocyte Count 1.35 X10^3/uL (0.83-4.51); Absolute Neutrophil Count 4.2 X10^3/uL (2.0-7.7); Basophil# 0.02 X10^3/uL; Basophil% 0.3 % (0-1); Eosinophil# 0.04 X10^3/uL; Eosinophils% 0.7 % (0-5); Hematocrit 47.6 % (40-54); Hemoglobin 15.8 g/dL (13.0-16.5); Lymphocyte # 1.35 X10^3/ul (0.83-4.51); Mean Corp Hgb Conc 33.2 g/dL (32-36); Mean Corpuscular Hgb 27.8 pg (27.0-32.0); Mean Corpuscular Volume 83.7 fL (80-94); Mean Platelet Vol. 10.4 fl (6.2-12.0); Monocyte# 0.51 X10^3/uL; Monocyte% 8.3 % (0-10); NRBC Flagged by Analyzer 0 % (0-5); Neutrophil # 4.18 X10^3/uL (2.7-7.7); Neutrophil % 68.2 % (47-70); Platelet Count 269 K/mm3 (150-450); RBC Distribution Width SD 45.3 fl (35.1-43.9); Red Blood Count 5.69 M/mm3 (4.6-6.2); White Blood Count 6.1 K/mm3 (4.4-11.0)
[2021-09-29 10:13] LABS: ALB/GLOB Ratio 1.3 RATIO (0.9-2.4); AST(SGOT) 20 U/L (15-37); Alanine Aminotransfer ALT/SGPT 37 U/L (16-61); Albumin, Serum 4.6 g/dL (3.2-5.0); Alkaline Phosphatase 49 U/L (45-117); Anion Gap 5 (5-15); BUN 8 mg/dL (7-18); BUN/Creat Ratio 6.3 RATIO (10-20); Calcium,Total 9.5 mg/dL (8.5-10.1); Chloride 107 mmol/L (98-107); Creatinine, Serum 1.26 mg/dL (0.70-1.30); EST Glomerular Filtration Rate 68 mL/min (>60); Est Glom Filt Rate - Afr Amer 83 mL/min (>60); Estimated Creatinine Clearance 80.27 ml/min; Globulin 3.6 g/dL (2.2-4.2); Glucose 124 mg/dL (74-106); Lipase 159 U/L (73-393); Potassium 3.7 mmol/L (3.5-5.1); Protein, Total 8.2 g/dL (6.4-8.2); Sodium Level 138 mmol/L (136-145)
[2021-09-29] MEDS: Mag Hydrox/Al Hydrox/Simeth 30 ML UDC PO (10:44)
[2021-09-29 11:37] VITALS: BP 148/64; PULSE 89; RESP 16; O2SAT 99
== END 2021-09-29 11:38 | disposition home or self-care (01) ==
PROVIDERS: Emergency Provider Emergency Medicine; PCP Family Medicine; Visit Provider Emergency Medicine
DX: K29.70 Gastritis, unspecified, without bleeding (principal); F17.210 Nicotine dependence, cigarettes, uncomplicated; Z79.899 Other long term (current) drug therapy
CPT/HCPCS: 76705; 80053; 83690; 85025; 96361; 96374; 96375; 96376; 99282; J7030; A4216; J2405

== ENCOUNTER 2021-10-02 07:10 | Emergency (ER) | payer MEDICAID, SELFPAY ==
[2021-10-02 07:10] VITALS: BP 152/99; PULSE 67; RESP 14; TEMP 36.6; O2SAT 100; BMI 28.3
--- NOTE | 2021-10-02 07:57 | ED.VIS.GI ---
HPI HPI - GI History of Present Illness Chief Complaint: Abd Pain Informant: patient Abdominal Pain/Flank Pain Onset: Weeks (1) Context: Gradual Onset Timing: Continuous Quality: Aching and Cramping Location: Epigastric, RUQ and LUQ Worsened by: Nothing Relieved by: Nothing Nausea/Vomiting/Emesis GI Symptom: Positive for Nausea; Negative for Vomiting Diarrhea/Melena/Hematochezia GI Symptom: Negative for Diarrhea, Melena and Hematochezia Associated Symptoms Associated Symptoms: Negative for Dysuria, Frequency and Hematuria Narrative Narrative: Patient presents with abdominal pain that has been constant for the past week. Patient states it is gradually gotten worse over the last couple days. Patient describes his pain as aching and cramping. Patient states it is mainly over the upper abdomen. Patient states nothing makes it better nothing makes it worse. Patient states he has not had a bowel movement in several days. Patient admits to nausea but denies any vomiting. Patient denies any dysuria, hematuria, or frequency. Patient was seen here couple days ago and had an ultrasound as well as lab work-up which was normal. Patient felt better after GI cocktail on that visit. PFSH PFSH Medical History no medical history no medical history Home Medications famotidine [Pepcid] 20 mg PO DAILY #14 tab 09/29/21 [Rx Last Taken Unknown] ondansetron 4 mg PO Q6H PRN #14 tab 09/29/21 [Rx Last Taken Unknown] hydrocodone-acetaminophen 1 tab PO Q6H PRN PRN 3 Days #10 tablet 10/02/21 [Rx Last Taken Unknown] Allergy/AdvReac Type Severity Reaction Status Date / Time No Known Allergies Allergy Verified 10/02/21 07:12 Surgical History no surgical history no surgical history Social History Smoking Status: Current every day smoker tobacco type: cigarettes ROS ROS ED Constitutional Constitutional ED: Reports chills and subjective; Denies fever(s) Eyes Eyes: Denies blurry vision or change in vision ENT ENT ED: Denies rhinorrhea or sore throat Cardiovascular Cardiovascular: Reports chest pain; Denies palpitations Respiratory/Chest Respiratory/Chest: Denies cough or dyspnea Gastrointestinal Gastrointestinal: Reports abdominal pain and constipation; Denies nausea or vomiting Genitourinary Genitourinary ED: Denies dysuria or hematuria Musculoskeletal Musculoskeletal: Reports back pain; Denies neck pain Integumentary Denies abscess or rash Neurologic Neurologic: Denies headache(s) or weakness Allergic/Immunologic Allergic/Immunologic ED: Denies mouth swelling or urticaria EXAM Physical Exam Const Vital Signs: 10/02/21 07:10 Temperature 97.8 F Temperature Source Temporal Pulse Rate 67 Respiratory Rate 14 Blood Pressure 152/99 H Blood Pressure Mean 116 Pulse Ox 100 Oxygen Delivery Method Room Air Positive well nourished and well developed General Appearance ED: well developed HEENT Reports moist mucous membranes Neck supple and no JVD Resp normal respiratory effort and clear to auscultation bilaterally Cardio regular rate, regular rhythm and no murmurs GI normal to inspection, nondistended, normoactive bowel sounds and non-distended Auscultation: normoactive bowel sounds Palpation: soft and tender epigastric, LLQ, RLQ, LUQ, RUQ, periumbilical and suprapubic; Negative for guarding or rebound tenderness present Extremity normal to inspection General Extremety ED: Negative for edema or tenderness General Extremity: Negative for edema Neuro oriented x3, CN's II-XII intact bilaterally and no sensory deficits noted Sensorium / Orientation: alert Motor Exam: strength 5/5 throughout Psych mental status grossly normal Skin no rashes or lesions noted MDM MDM MDM Narrative Medical decision making narrative: Patient was given IV fluids, morphine, and Zofran. CBC was within normal limits. Comprehensive metabolic profile and lipase were essentially within normal limits. CT scan of the abdomen and pelvis was obtained. There is no acute abdominal process. This was interpreted by the radiologist and reviewed by myself. Patient was given a repeat dose of morphine. Patient was also given a GI cocktail. Patient was advised of his findings. Patient was instructed to follow-up with his primary care physician in 3 to 5 days. Patient was instructed to continue his Pepcid and Zofran as prescribed. Patient was given a prescription for a short course of [place]. Patient was advised that he may need to see a third hand for upper endoscopy for this. Patient understood and was agreeable with the plan. All questions were answered. Lab Data Attestation: I reviewed the patient's lab results. Labs: Laboratory Results - last 24 hr 10/02/21 10/02/21 07:40 07:40 WBC 7.6 RBC 6.04 Hgb 17.1 H Hct 49.9 MCV 82.6 MCH 28.3 MCHC 34.3 RDW Std Deviation 42.7 RDW Coeff of Hari 14.3 Plt Count 290 MPV 10.6 Immature Gran % (Auto) 0.400 Neut % (Auto) 56.4 Lymph % (Auto) 32.5 [place] % (Auto) 9.5 Eos % (Auto) 0.7 Baso % (Auto) 0.5 Absolute Neuts (auto) 4.3 Absolute Lymphs (auto) 2.46 Nucleated RBC % 0 Sodium 136 Potassium 3.6 Chloride 104 Carbon Dioxide 23.0 Anion Gap 9 BUN 11 Creatinine 1.40 H Estim Creat Clear Calc 72.24 Est GFR (MDRD) Af Amer 73 Est GFR (MDRD) Non-Af 60 BUN/Creatinine Ratio 7.9 L Glucose 112 H Calcium 10.3 H Total Bilirubin 0.50 AST 25 ALT 40 Alkaline Phosphatase 48 Total Protein 8.5 H Albumin 4.7 Globulin 3.8 Albumin/Globulin Ratio 1.2 Lipase 192 Radiography Diagnostic Testing: Clinical Impression(s) from Imaging Studies Abdomen/Pelvis CT 10/02/21 08:00 IMPRESSION: Normal enhanced CT of the abdomen and pelvis. Electronically Signed: Bernard Victoria MD at 10:19 EDT , Discharge Plan Triage Chief Complaint: Abd Pain ED Provider: Steve Lopez Dx/Rx/DC Orders Clinical Impression: Epigastric pain Instructions: ED Abdominal Pain Unkn Cause Male... Prescriptions: New hydrocodone-acetaminophen [hydrocodone-acetaminophen] 1 TABLET tablet 1 tab PO Q6H PRN PRN (Reason: Pain) 3 Days Qty: 10 RF: 0 No Action famotidine [Pepcid] 20 mg tablet 20 mg PO DAILY Qty: 14 RF: 0 ondansetron 4 mg tablet,disintegrating 4 mg PO Q6H PRN (Reason: nausea and vomiting) Qty: 14 RF: 0 Primary Care Provider: Denny Benton Referrals: Denny Benton MD [Primary Care Provider] - 3-5 Days Disposition Disposition: Home, Self Care
--- NOTE | 2021-10-02 08:00 | CT_ITS ---
STUDY: CT ABDOMEN AND PELVIS WITH CONTRAST REASON FOR EXAM: Male, 36 years old. Abdominal pain -- IV PO Contrast RADIATION DOSAGE (If Supplied By Facility): CTDIvol = ( 13.39 ) mGy, DLP = ( 803.35 ) mGycm TECHNIQUE: Transaxial images were obtained from the dome of the diaphragm to the symphysis pubis with oral contrast. Oral and amp; IV Gastrografin and amp; 100mL Isovue-300 was administered. Sagittal and coronal images were reconstructed. Individualized dose optimization techniques were used for this CT. COMPARISON: None. FINDINGS: The visualized lung bases are unremarkable. The visualized portions of the heart are within normal limits. Normal liver. Normal gallbladder and extrahepatic biliary system. Normal spleen. Normal pancreas. Normal bilateral adrenal glands. Normal right kidney. Normal left kidney. Normal visualized stomach. Normal small intestine. Normal colon. The appendix is visualized and appears normal. Normal abdominal aorta. Normal inferior vena cava. Normal retroperitoneum. Normal urinary bladder. Normal abdominal wall. Normal osseous structures. CT/Abdomen/Pelvis WITH Contrast IMPRESSION: Normal enhanced CT of the abdomen and pelvis. Electronically Signed: Bernard Victoria MD at 10:19 EDT ,
[2021-10-02] MEDS: 0.9% Normal Saline 1,000 ML 1000 ML IV (08:08)
[2021-10-02] MEDS: Morphine 4 MG/ML Syringe IV ×2 (08:09→10:34)
[2021-10-02] MEDS: Ondansetron 4 MG/2 ML Vial IV (08:09)
[2021-10-02 08:17] LABS: Absolute Lymphocyte Count 2.46 X10^3/uL (0.83-4.51); Absolute Neutrophil Count 4.3 X10^3/uL (2.0-7.7); Basophil# 0.04 X10^3/uL; Basophil% 0.5 % (0-1); Eosinophil# 0.05 X10^3/uL; Eosinophils% 0.7 % (0-5); Hematocrit 49.9 % (40-54); Hemoglobin 17.1 g/dL (13.0-16.5); Lymphocyte # 2.46 X10^3/ul (0.83-4.51); Lymphocyte % 32.5 % (19-41); Mean Corp Hgb Conc 34.3 g/dL (32-36); Mean Corpuscular Hgb 28.3 pg (27.0-32.0); Mean Corpuscular Volume 82.6 fL (80-94); Mean Platelet Vol. 10.6 fl (6.2-12.0); Monocyte# 0.72 X10^3/uL; Monocyte% 9.5 % (0-10); NRBC Flagged by Analyzer 0 % (0-5); Neutrophil # 4.26 X10^3/uL (2.7-7.7); Neutrophil % 56.4 % (47-70); Platelet Count 290 K/mm3 (150-450); RBC Distribution Width CV 14.3 % (11.6-14.6); RBC Distribution Width SD 42.7 fl (35.1-43.9); Red Blood Count 6.04 M/mm3 (4.6-6.2); White Blood Count 7.6 K/mm3 (4.4-11.0)
[2021-10-02 08:30] LABS: ALB/GLOB Ratio 1.2 RATIO (0.9-2.4); AST(SGOT) 25 U/L (15-37); Alanine Aminotransfer ALT/SGPT 40 U/L (16-61); Albumin, Serum 4.7 g/dL (3.2-5.0); Alkaline Phosphatase 48 U/L (45-117); Anion Gap 9 (5-15); BUN 11 mg/dL (7-18); BUN/Creat Ratio 7.9 RATIO (10-20); Calcium,Total 10.3 mg/dL (8.5-10.1); Chloride 104 mmol/L (98-107); EST Glomerular Filtration Rate 60 mL/min (>60); Est Glom Filt Rate - Afr Amer 73 mL/min (>60); Estimated Creatinine Clearance 72.24 ml/min; Globulin 3.8 g/dL (2.2-4.2); Glucose 112 mg/dL (74-106); Lipase 192 U/L (73-393); Potassium 3.6 mmol/L (3.5-5.1); Protein, Total 8.5 g/dL (6.4-8.2); Sodium Level 136 mmol/L (136-145)
[2021-10-02] MEDS: Mag Hydrox/Al Hydrox/Simeth 30 ML UDC PO (10:34)
[2021-10-02 11:56] VITALS: PULSE 74; RESP 17; O2SAT 98
== END 2021-10-02 11:57 | disposition home or self-care (01) ==
PROVIDERS: Emergency Provider Emergency Medicine; PCP Family Medicine; Visit Provider Emergency Medicine
DX: R10.13 Epigastric pain (principal); R11.0 Nausea; F17.210 Nicotine dependence, cigarettes, uncomplicated; K59.00 Constipation, unspecified
CPT/HCPCS: 74177; 80053; 83690; 85025; 96361; 96374; 96375; 96376; 99285; J7030; Q9967; A4216; J2405

== ENCOUNTER 2021-10-06 07:57 | Observation (INO) | payer MEDICAID, SELFPAY ==
[2021-10-06] VITALS (16 sets, daily range): BP systolic 136–185; BP diastolic 69–125; PULSE 58–88; RESP 14–20; TEMP 36.2–37.2; O2SAT 96–100; BMI 28.0; BMI 27.6
--- NOTE | 2021-10-06 | GASB_PTH ---
PATIENT: DONOVAN ZARATE LOC: [facility] U#:[id number] AGE/SX: 36/M ROOM: [facility] RE10/06/[address]: Dr. Carlos Boyd DO : 1985 BED: 1 DIS: 10/07/2021 SPEC #: [id number] RECD: 10/06/21 21:16 STATUS: SOURAV REMalik #: [id number] RK: 10/06/21 00:[address]: Gaamliel Richardson DEPT: SURGICAL PATHOLOGY RECD BY: Ladarius Mott ENTERED: 10/07/21 08:40 SP TYPE: Gastric Bx OTHR DR: MD Dr. Carlos Schuster DO Tissues: A - Gastric mucous membrane B - Duodenum, NOS Procedures: Surgery Specimen Level IV Comments: @ Ordering doctor for SUIV edited from to @ by JENNA at 10/07/21945 @ Submitting doctor edited from to @ by RGOOD at 10/07/21 0946 HEADER OPER[place] [place] DIAGNOSIS: Epigastric pain, elevated lipase TISSUE SUBMITTED: A ? Gastric body, B - Duodenum MICROSCOPIC DIAGNOSIS A. Gastric body, biopsy: Mild gastritis. See microscopic description and comment. B. Duodenum, biopsy: Fragments of duodenal mucosa with mild nonspecific chronic inflammation. SJ:nida 10/10/2021 COMMENT A. The results of immunohistochemistry for Helicobacter pylori will be reported separately ([id number]). MICROSCOPIC DESCRIPTION Slides are reviewed. A. The specimen shows fragments of gastric mucosa with chronic inflammatory cell infiltrates in the lamina propria consisting of lymphocytes and plasma cells, consistent with mild chronic gastritis. GROSS DESCRIPTION A - Received in fixative is one container labeled with the patient's name and designated gastric body biopsy. The specimen consists of multiple irregular fragments of light morfin soft tissue that in aggregate measure 0.8 x 0.8 x 0.1 cm. The specimen is totally submitted in one cassette. B - Received in fixative is one container labeled with the patient's name and designated duodenum biopsy. The specimen consists of two irregular fragments of light morfin soft tissue that in aggregate measure 0.6 x 0.3 x 0.1 cm. The specimen is totally submitted in one cassette. / SJ:rg 10/07/2021 TC:3 CPT: 04902 x2
--- NOTE | 2021-10-06 09:03 | CT_ITS ---
STUDY: CT ABDOMEN AND PELVIS WITH CONTRAST REASON FOR EXAM: Male, 36 years old. One day history of left-sided abdominal pain. RADIATION DOSAGE (If Supplied By Facility): CTDIvol = ( 11.74 ) mGy, DLP = ( 681.79 ) mGycm TECHNIQUE: Transaxial images were obtained from the dome of the diaphragm to the symphysis pubis without oral contrast. IV 100mL Isovue-300 was administered. Sagittal and coronal images were reconstructed. Individualized dose optimization techniques were used for this CT. COMPARISON: Comparison is made with prior examination of 10/02/2021. FINDINGS: The visualized lung bases are unremarkable. The visualized portions of the heart are within normal limits. Normal liver. Normal gallbladder and extrahepatic biliary system. Normal spleen. Normal pancreas. Normal bilateral adrenal glands. Normal right kidney. Normal left kidney. Normal visualized stomach. Normal small intestine. There are scattered colonic diverticula consistent with diverticulosis. The appendix is visualized and appears normal. Normal abdominal aorta. Normal inferior vena cava. Normal retroperitoneum. Normal urinary bladder. Normal abdominal wall. Normal osseous structures. CT/Abdomen/Pelvis W IV Cont ONLY IMPRESSION: Scattered sigmoid diverticula. No other abnormality is seen. Electronically Signed: José Miguel Yanes MD at 10:17 EDT ,
[2021-10-06 09:20] LABS: Absolute Neutrophil Count 3.1 X10^3/uL (2.0-7.7); Basophil# 0.04 X10^3/uL; Basophil% 0.7 % (0-1); Eosinophil# 0.12 X10^3/uL; Eosinophils% 2.1 % (0-5); Hematocrit 48.6 % (40-54); Hemoglobin 16.8 g/dL (13.0-16.5); Lymphocyte % 32.9 % (19-41); Mean Corp Hgb Conc 34.6 g/dL (32-36); Mean Corpuscular Hgb 28.7 pg (27.0-32.0); Mean Corpuscular Volume 83.1 fL (80-94); Mean Platelet Vol. 10.2 fl (6.2-12.0); Monocyte# 0.56 X10^3/uL; Monocyte% 9.7 % (0-10); NRBC Flagged by Analyzer 0 % (0-5); Neutrophil # 3.12 X10^3/uL (2.7-7.7); Neutrophil % 54.1 % (47-70); Platelet Count 328 K/mm3 (150-450); RBC Distribution Width CV 14.3 % (11.6-14.6); RBC Distribution Width SD 43.2 fl (35.1-43.9); Red Blood Count 5.85 M/mm3 (4.6-6.2); White Blood Count 5.8 K/mm3 (4.4-11.0)
--- NOTE | 2021-10-06 09:37 | CPS ---
Critical values verified times two.Hand delivered results to . Verified by read back.
[2021-10-06] MEDS: Morphine 4 MG/ML Syringe IV ×3 (09:40→22:38)
[2021-10-06] MEDS: Ondansetron 4 MG/2 ML Vial IV (09:40)
[2021-10-06] MEDS: 0.9% Normal Saline 1,000 ML 1000 ML IV (09:41)
[2021-10-06 09:43] LABS: ALB/GLOB Ratio 1.3 RATIO (0.9-2.4); AST(SGOT) 17 U/L (15-37); Alanine Aminotransfer ALT/SGPT 33 U/L (16-61); Albumin, Serum 4.7 g/dL (3.2-5.0); Alkaline Phosphatase 48 U/L (45-117); Anion Gap 7 (5-15); BUN 7 mg/dL (7-18); BUN/Creat Ratio 5.7 RATIO (10-20); Calcium,Total 10.3 mg/dL (8.5-10.1); Chloride 104 mmol/L (98-107); Creatinine, Serum 1.22 mg/dL (0.70-1.30); EST Glomerular Filtration Rate 71 mL/min (>60); Est Glom Filt Rate - Afr Amer 86 mL/min (>60); Globulin 3.6 g/dL (2.2-4.2); Glucose 109 mg/dL (74-106); Lipase 538 U/L (73-393); Potassium 3.4 mmol/L (3.5-5.1); Protein, Total 8.3 g/dL (6.4-8.2); Sodium Level 136 mmol/L (136-145)
--- NOTE | 2021-10-06 09:54 | EDS_ITS ---
HPI HPI - GI History of Present Illness Chief Complaint: Abd Pain Narrative Narrative: 36-year-old male presenting with diffuse abdominal pain. This is worse in the epigastric region. This is not a new problem for the patient. He reports that he has been to the ER a few times already for this and had normal work-ups. He states he has no significant medical history otherwise. He has had no abdominal surgeries. He does admit to smoking marijuana. Patient also reports that he has been constipated for 5 days or so. Patient has not tried anything such as a laxative or stool softener. PFSH PFSH Home Medications famotidine [Pepcid] 20 mg PO DAILY #14 tab 09/29/21 [Rx Last Taken Unknown] ondansetron 4 mg PO Q6H PRN #14 tab 09/29/21 [Rx Last Taken Unknown] hydrocodone-acetaminophen 1 tab PO Q6H PRN PRN 3 Days #10 tablet 10/02/21 [Rx Last Taken Unknown] Allergy/AdvReac Type Severity Reaction Status Date / Time No Known Allergies Allergy Verified 10/06/21 08:02 Social History Smoking Status: Current every day smoker tobacco type: cigarettes ROS ROS ED Constitutional Constitutional ED: Denies chills or fever(s) ENT ENT ED: Denies rhinorrhea or sore throat Cardiovascular Cardiovascular: Denies chest pain or palpitations Respiratory/Chest Respiratory/Chest: Denies cough or dyspnea Gastrointestinal Gastrointestinal: Reports abdominal pain, constipation, nausea and vomiting Genitourinary Genitourinary ED: Denies dysuria or hematuria Musculoskeletal Musculoskeletal: Denies myalgias Integumentary Denies rash Neurologic Neurologic: Denies headache(s) or paresthesias Psychiatric Psychiatric: Denies anxiety or depression EXAM Physical Exam Const Vital Signs: 10/06/21 07:57 10/06/21 11:16 Temperature 98.4 F Temperature Source Temporal Pulse Rate 64 88 Respiratory Rate 18 16 Blood Pressure 136/92 H 138/69 H Blood Pressure Mean 106 92 Pulse Ox 100 97 Oxygen Delivery Method Room Air Room Air Positive well nourished General Appearance ED: NAD; Negative for pallor HEENT Reports moist mucous membranes normocephalic and atraumatic Eyes PERRL and EOMs intact bilaterally Resp normal respiratory effort and clear to auscultation bilaterally Cardio regular rate and regular rhythm GI Palpation: tender Narrative: Generalized abdominal tenderness. Neuro CN's II-XII intact bilaterally Sensorium / Orientation: alert, oriented to person, oriented to place and oriented to time Psych mental status grossly normal and thought process normal Skin General Skin Exam: Negative for jaundice or pallor Lesions: no lesions Rashes: no rashes MDM MDM MDM Narrative Medical decision making narrative: Patient seen and evaluated for abdominal pain. It seems to be somewhat diffuse but is worse in the epigastric region. Patient given morphine and Zofran. Lab work is obtained and he has no leukocytosis, hemoglobin stable at 16.8. Platelets 328. Renal function and electrolytes are normal with exception of a potassium of 3.4. LFTs within normal limits. Lipase is slightly elevated at 538 which is new. This is the patient's fourth visit to the ER for similar symptoms over weeks. He was referred to Dr. Richardson but has not made follow-up yet. I spoke with Dr. Richardson who did feel he probably warranted admission for observation and he would see him in consult. He will determine if the patient needs endoscopy as this is what the patient was told he needs. Patient was amenable to observation. Patient transferred to the floor in stable condition. Impression: 1. Abdominal pain 2. Elevated lipase Lab Data Attestation: I reviewed the patient's lab results. Labs: Laboratory Results - last 24 hr 10/06/21 10/06/21 09:15 09:15 WBC 5.8 RBC 5.85 Hgb 16.8 H Hct 48.6 MCV 83.1 MCH 28.7 MCHC 34.6 RDW Std Deviation 43.2 RDW Coeff of Hari 14.3 Plt Count 328 MPV 10.2 Immature Gran % (Auto) 0.500 Neut % (Auto) 54.1 Lymph % (Auto) 32.9 [place] % (Auto) 9.7 Eos % (Auto) 2.1 Baso % (Auto) 0.7 Absolute Neuts (auto) 3.1 Absolute Lymphs (auto) 1.90 Nucleated RBC % 0 Sodium 136 Potassium 3.4 L Chloride 104 Carbon Dioxide 25.0 Anion Gap 7 BUN 7 Creatinine 1.22 Estim Creat Clear Calc 82.90 Est GFR (MDRD) Af Amer 86 Est GFR (MDRD) Non-Af 71 BUN/Creatinine Ratio 5.7 L Glucose 109 H Calcium 10.3 H Total Bilirubin 0.70 AST 17 ALT 33 Alkaline Phosphatase 48 Total Protein 8.3 H Albumin 4.7 Globulin 3.6 Albumin/Globulin Ratio 1.3 Lipase 538 H ABG Data ABG results: ABG 10/06/21 09:17 Specimen Type Cancelled Sample Site Cancelled pH Cancelled Bicarbonate Actual Cancelled Total CO2 Cancelled Base Excess Cancelled O2 Saturation Cancelled O2 % Cancelled ABG pCO2 Cancelled ABG pO2 Cancelled [place] Test Cancelled Respiration Rate Cancelled O2 Delivery Device Cancelled Liter Flow Cancelled Minute Volume Cancelled Vent Mode Cancelled Inspiratory Time Cancelled Expiratory Time Cancelled [place] Volume Cancelled Mean Airway Pressure Cancelled POC PEEP Cancelled Peak Inspir Pressure Cancelled POC Pressure Suppt Cancelled Pressure Control Cancelled Pressure High Cancelled Pressure Low Cancelled Time High Cancelled Time Low Cancelled EPAP Cancelled IPAP Cancelled Blood Gas Comments Cancelled Crit Call To/Read Back Cancelled Blood Gas Notified Whom Cancelled Blood Gas Notified Time Cancelled Clinical Comments Cancelled Radiography Diagnostic Testing: Clinical Impression(s) from Imaging Studies Abdomen/Pelvis CT 10/06/21 09:03 IMPRESSION: Scattered sigmoid diverticula. No other abnormality is seen. Electronically Signed: José Miguel Yanes MD at 10:17 EDT , Discharge Plan Triage Chief Complaint: Abd Pain ED Provider: Red Rollins Dx/Rx/DC Orders Primary Care Provider: Denny Benton
--- NOTE | 2021-10-06 13:35 | IMM_PTH ---
PATIENT: DONOVAN ZARATE LOC: [facility] U#:[id number] AGE/SX: 36/M ROOM: [facility] RE10/06/[address]: Dr. Carlos Boyd DO : 1985 BED: 1 DIS: 10/07/2021 SPEC #: [id number] RECD: 10/07/21 09:46 STATUS: SOURAV REQ #: [id number] RK: 10/06/21 13:[address]: Ra Debrahsaan DEPT: IMMUNOHISTOCHEMISTRY RECD BY: Isela Casanova ENTERED: 10/07/21 09:47 SP TYPE: IMMUNO OTHR DR: MD Dr. Carlos Schuster, Tissues: A - Stomach, NOS Procedures: H Pylori (initial) PHYSICIAN & INSTITUTION [place] [id number] SPECIMEN INFORMATION: Tissue Source: A ? Gastric body Clinical Info: Epigastric pain, elevated lipase Specimen Number: [id number] CPT code: 09093 METHODOLOGY: Deparaffinized sections of prefer/formalin-fixed tissue or PAP/DQ stained slides are incubated with monoclonal/polyclonal antibodies/oligonucleotide probes. Localization is made via biotin free immunoperoxidase method. Appropriate controls are performed and reacted as expected. Results on target cell population are indicated in the following table: RESULTS: ANTIBODY / CLONE RESULT Block A H Pylori (polyclonal) negative These tests were developed and their performance characteristics determined by [facility]. They may not have been cleared or approved by the U.S. Food and Drug Administration. The FDA has determined that such clearance or approval is not necessary. INTERPRETATION: A. Gastric body, biopsy: Negative for Helicobacter pylori organisms. SJ:nida 10/10/2021
--- NOTE | 2021-10-06 14:02 | HP.PCM.HOS_ITS ---
Documented by User: Ashanti Solano NP, HOSPITAL CLINIC ASSISTANT-C 10/06/21 14:21 HPI - General General Date of Admission: 10/06/21 HPI Narrative DONOVAN ZARATE, is a 36 M who presents to the emergency room due to abdominal pain. Patient states he has had ongoing abdominal pain for approximately 1 week. Patient has been seen in the ER a few times over the past week and work-up unremarkable. Patient reports pain is generally diffuse and describes cramping feeling of someone twisting his bowels. He reports intermittent nausea. Denies emesis. He states his symptoms are typically worse between 7 PM and 3 AM. He denies any aggravating or alleviating factors. He denies diarrhea. States he has not had a bowel movement in approximately 1 week. Denies fever, chills. Denies any history of recurrent abdominal pain. Denies history of abdominal surgeries. He reports a history of PTSD/anxiety, tobacco dependence. He does admit to marijuana use. Denies other drug use. [facility] Medical History (Updated 10/06/21 @ 14:07 by Ashanti Solano NP, HOSPITAL CLINIC ASSISTANT-C) PTSD (post-traumatic stress disorder) Home Medications famotidine [Pepcid] 20 mg PO DAILY #14 tab 09/29/21 [Rx Last Taken Unknown] ondansetron 4 mg PO Q6H PRN #14 tab 09/29/21 [Rx Last Taken Unknown] hydrocodone-acetaminophen 1 tab PO Q6H PRN PRN 3 Days #10 tablet 10/02/21 [Rx Last Taken Unknown] Allergy/AdvReac Type Severity Reaction Status Date / Time No Known Allergies Allergy Verified 10/06/21 08:02 Family History (Updated 10/06/21 @ 14:08 by Ashanti Solano NP, HOSPITAL CLINIC ASSISTANT-C) Mother Diabetes Father , when patient was 5 years old, traumatic accident. No problems noted. Surgical History no surgical history no surgical history Social History (Updated 10/06/21 @ 14:11 by Ashanti Solano NP, HOSPITAL CLINIC ASSISTANT-C) Smoking Status: Current every day smoker tobacco type: cigarettes alcohol intake: current alcohol intake frequency: a few times a week substance use type: marijuana ROS Constitutional Constitutional: Denies change in weight, chills, fatigue, fever(s) or weakness Cardiovascular Cardiovascular: Denies chest pain, edema, lightheadedness, palpitations or syncope Respiratory/Chest Respiratory/Chest: Denies cough, dyspnea, productive cough, shortness of breath at rest, shortness of breath with exertion or wheezing Gastrointestinal Gastrointestinal: Reports abdominal pain and nausea; Denies constipation, diarrhea or vomiting Genitourinary Genitourinary: Denies burning urination, difficulty urinating, dysuria, mitesh turia, urinary frequency, urinary incontinence or urinary urgency Musculoskeletal Musculoskeletal: Denies back pain, joint pain or muscle weakness Integumentary Integumentary: Denies erythema, lesions, rash or wounds Neurologic Neurologic: Denies abnormal speech, confusion, dizziness, focal weakness, numbness, paresthesias, seizure-like activity or syncope Psychiatric Psychiatric: Denies anxiety or depression Hematologic/Lymphatic Hematologic/Lymphatic: Denies anemia, easy bleeding or easy bruising Allergic/Immunologic Allergic/Immunologic: Denies hives or asthma Vital Signs Vital Signs Vital Signs: 10/06/21 07:57 10/06/21 11:16 10/06/21 12:07 Temperature 98.4 F 97.2 F L Temperature Source Temporal Oral Pulse Rate 64 88 86 Respiratory Rate 18 16 15 Blood Pressure 136/92 H 138/69 H 139/82 H Blood Pressure Mean 106 92 101 Pulse Ox 100 97 97 Oxygen Delivery Method Room Air Room Air Room Air 10/06/21 13:04 Temperature Temperature Source Pulse Rate 88 Respiratory Rate 16 Blood Pressure 136/89 H Blood Pressure Mean 104 Pulse Ox 99 Oxygen Delivery Method Room Air Weight Weight: 190 lb Body Mass Index (BMI) 28.0 Physical Exam Const alert, oriented x3 and no apparent distress Orientation / Consciousness: awake, oriented to person, oriented to place and oriented to time HEENT normocephalic Mouth: dry mucous membranes Eyes PERRL, EOMs intact bilaterally and conjunctivae normal Neck no lymphadenopathy Resp normal respiratory effort and clear to auscultation bilaterally Cardio regular rate, regular rhythm and no murmurs Peripheral Pulses: pulses 2+ throughout GI normal to inspection, nondistended, normoactive bowel sounds and non-distended Palpation: tender Extremity normal to inspection Skin no rashes or lesions noted Lesions: no lesions Rashes: no rashes Trauma: no lacerations or abrasions Neuro CN's II-XII intact bilaterally, no focal motor deficits, no sensory deficits noted and deep tendon reflexes 2+ bilaterally Psych mental status grossly normal and affect normal Results Lab / Micro Data Result Diagrams: 10/06/21 09:15 10/06/21 09:15 Labs: Laboratory Results - last 24 hr 10/06/21 09:15: WBC 5.8, RBC 5.85, Hgb 16.8 H, Hct 48.6, MCV 83.1, MCH 28.7, MCHC 34.6, RDW Std Deviation 43.2, RDW Coeff of Hari 14.3, Plt Count 328, MPV 10.2, Immature Gran % (Auto) 0.500, Neut % (Auto) 54.1, Lymph % (Auto) 32.9, [place] % (Auto) 9.7, Eos % (Auto) 2.1, Baso % (Auto) 0.7, Absolute Neuts (auto) 3.1, Absolute Lymphs (auto) 1.90, Nucleated RBC % 0 10/06/21 09:15: Sodium 136, Potassium 3.4 L, Chloride 104, Carbon Dioxide 25.0, Anion Gap 7, BUN 7, Creatinine 1.22, Estim Creat Clear Calc 82.90, Est GFR (MDRD) Af Amer 86, Est GFR (MDRD) Non-Af 71, BUN/Creatinine Ratio 5.7 L, Glucose 109 H, Calcium 10.3 H, Total Bilirubin 0.70, AST 17, ALT 33, Alkaline Phosphatase 48, Total Protein 8.3 H, Albumin 4.7, Globulin 3.6, Albumin/Globulin Ratio 1.3, Lipase 538 H ABG Data ABG results: ABG 10/06/21 09:17 Specimen Type Cancelled Sample Site Cancelled pH Cancelled Bicarbonate Actual Cancelled Total CO2 Cancelled Base Excess Cancelled O2 Saturation Cancelled O2 % Cancelled ABG pCO2 Cancelled ABG pO2 Cancelled [place] Test Cancelled Respiration Rate Cancelled O2 Delivery Device Cancelled Liter Flow Cancelled Minute Volume Cancelled Vent Mode Cancelled Inspiratory Time Cancelled Expiratory Time Cancelled Tidal Volume Cancelled Mean Airway Pressure Cancelled POC PEEP Cancelled Peak Inspir Pressure Cancelled POC Pressure Suppt Cancelled Pressure Control Cancelled Pressure High Cancelled Pressure Low Cancelled Time High Cancelled Time Low Cancelled EPAP Cancelled IPAP Cancelled Blood Gas Comments Cancelled Crit Call To/Read Back Cancelled Blood Gas Notified Whom Cancelled Blood Gas Notified Time Cancelled Clinical Comments Cancelled Radiology Impression Abdomen/Pelvis CT 10/06/21 09:03 IMPRESSION: Scattered sigmoid diverticula. No other abnormality is seen. Electronically Signed: José Miguel Yanes MD at 10:17 EDT , Assessment & Plan Assessment/Plan (1) Epigastric pain: PLAN: 1. Intractable diffuse abdominal pain- unclear etiology. Lab and imaging unremarkable with exception of mildly elevated lipase. GI consulted. As needed antiemetics. NPO. 2. Marijuana use- [facility] report shows large quantities of CBD rx. Patient states he is being prescribed for PTSD/Anxiety. Likely contributing to #1. 3. Tobacco dependence-declines nicotine replacement patch. Encouraged cessation. DVT prophylaxis- Not indicated, early ambulation This patient was seen by APRIL Clemons under the supervision of Dr. Boyd. Time spent examining patient, reviewing data and subsequent management of care: 17 minutes Documented by User: Dr. Carlos Boyd DO 10/06/21 17:45 HPI - General General Date of Admission: 10/06/21 [facility] Medical History (Updated 10/06/21 @ 14:07 by Ashanti Solano HOSPITAL CLINIC ASSISTANT, HOSPITAL CLINIC ASSISTANT-C) PTSD (post-traumatic stress disorder) Home Medications famotidine [Pepcid] 20 mg PO DAILY #14 tab 09/29/21 [Rx Last Taken Unknown] ondansetron 4 mg PO Q6H PRN #14 tab 09/29/21 [Rx Last Taken Unknown] hydrocodone-acetaminophen 1 tab PO Q6H PRN PRN 3 Days #10 tablet 10/02/21 [Rx Last Taken Unknown] Allergy/AdvReac Type Severity Reaction Status Date / Time No Known Allergies Allergy Verified 10/06/21 08:02 Family History (Updated 10/06/21 @ 14:08 by Ashanti Solano HOSPITAL CLINIC ASSISTANT, HOSPITAL CLINIC ASSISTANT-C) Mother Diabetes Father , when patient was 5 years old, traumatic accident. No problems noted. Surgical History no surgical history Social History (Updated 10/06/21 @ 14:11 by Ashanti Solano HOSPITAL CLINIC ASSISTANT, HOSPITAL CLINIC ASSISTANT-C) Smoking Status: Current every day smoker tobacco type: cigarettes alcohol intake: current alcohol intake frequency: a few times a week substance use type: marijuana Results Lab / Micro Data Result Diagrams: 10/06/21 09:15 10/06/21 09:15 Charges/Coding Addendum Addendum: Patient was seen and examined today independently of Ashanti Solano, he came to the ER complaining of diffuse abdominal pain over the epigastric region. Patient also complained of nausea with an episode of vomiting today. Patient had been seen in the emergency room on 09/1721, and again on 10/02/2021 for similar complaints. Patient did complain of constipation today, CT of the abdomen pelvis was obtained today and it showed scattered sigmoid diverticula without evidence of any other pathology. Patient's CBC was remarkable for hemoglobin of 16.8, chemistry panel was remarkable for a potassium of 3.4, and lipase was elevated at 538. On examination he appeared in good health and spirits. Vital signs as documented. Skin warm and dry and without overt rashes. Neck without JVD, neck was supple, trachea midline, thyroid was normal. Lungs clear bilaterally, normal air movement was noted. Heart exam notable for regular rhythm, normal sounds and absence of murmurs, rubs or gallops. Abdomen unremarkable and without evidence of organomegaly, masses, or abdominal aortic enlargement. Bowel sounds are present, abdomen is not distended. Extremities nonedematous, no cyanosis was noted, no clubbing was noted. Neuro: Cranial nerves II through XII are grossly intact, no focal motor deficits were noted, sensation to light touch and pinprick intact, motor exam 5/5 throughout. Psych: Patient is alert and oriented x3, he does not appear anxious or depressed, he does not appear agitated. Impression: #1 epigastric abdominal pain-etiology unclear at this point, patient will be placed in observation status on PCU, he will be given IV narcotic analgesia and placed on IV Protonix, he will be seen in consultation by gastroenterology. I suspect patient will undergo an EGD today. #2 elevated lipase-I do not think that this is secondary to pancreatitis, patient had an episode of emesis at home and this may be contributing to the rise in lipase. #3 posttraumatic stress disorder-patient is on medical marijuana for this I have reviewed Ashanti Solano's history and physical including her medical assessment and plan of care and with the above additions endorse it. Total clinical time spent by myself addressing the patient's issues, reviewing the patient's medical data, and collaborating with the patient's care team: 40 minutes Visit Charges OBSV E&M: [id number] Initial observation care L2
[2021-10-06] MEDS: 0.9% Normal Saline 1,000 ML 125 ML IV (14:30)
[2021-10-06 15:41] LABS: Amphetamine Urine VISTA NEGATIVE (<1000 ng/mL); Barbiturate Urine VISTA NEGATIVE (< 200 ng/mL); Benzodiazepine Urine VISTA NEGATIVE (< 200 ng/mL); Cocaine Urine VISTA NEGATIVE (< 300 ng/mL); Ecstacy Urine VISTA NEGATIVE (< 500 ng/mL); Methadone Urine VISTA NEGATIVE (< 300 ng/mL); PCP Urine VISTA NEGATIVE (< 25 ng/mL); THC Urine VISTA POSITIVE (< 50 ng/mL); Vista UDS pH Range 6
--- NOTE | 2021-10-06 17:57 | EX.PCM.CON.G ---
HPI Consult Data Date of Consult: 10/06/21 HPI Narrative HPI Narrative: DONOVAN ZARATE, is a 36 M who presents to the ED with worsening abdominal pain. He has been experiencing abdominal pain for the last year associated with nausea and vomiting. He does smoke marijuana on daily basis to help with his dale pain and had to help him eat. He does have mild reflux disease. He has not had any abdominal surgeries. He mostly gets abdominal pain in epigastric region sometimes radiating to the left upper quadrant. Not associated with any fever, chills, chest pain or shortness of breath. Has not started any new medicines. Patient says the abdominal pain is gradually getting worse. He has been to the emergency room 4 times and had work-ups including CT scan, ultrasound, abdominal x-ray and biochemical analysis. All the studies were normal except for elevated lipase. He does not admit to drinking any alcohol. He does not use any street drugs. He smokes marijuana 3-4 times a day. Patient felt better after GI cocktail. [facility] Medical History (Updated 10/06/21 @ 18:[address] Alston Friend, DO) PTSD (post-traumatic stress disorder) Home Medications famotidine [Pepcid] 20 mg PO DAILY #14 tab 09/29/21 [Rx Last Taken Unknown] ondansetron 4 mg PO Q6H PRN #14 tab 09/29/21 [Rx Last Taken Unknown] hydrocodone-acetaminophen 1 tab PO Q6H PRN PRN 3 Days #10 tablet 10/02/21 [Rx Last Taken Unknown] Allergy/AdvReac Type Severity Reaction Status Date / Time No Known Allergies Allergy Verified 10/06/21 08:02 Family History (Updated 10/06/21 @ 14:08 by Ashanti Solano NP, MANAGER EMERGENCY-C) Mother Diabetes Father , when patient was 5 years old, traumatic accident. No problems noted. Surgical History no surgical history Social History (Updated 10/06/21 @ 14:11 by Ashanti Solano NP, MANAGER EMERGENCY-C) Smoking Status: Current every day smoker tobacco type: cigarettes alcohol intake: current alcohol intake frequency: a few times a week substance use type: marijuana ROS Gastrointestinal Gastrointestinal: Reports abdominal pain, constipation, dyspepsia and early satiety Physical Exam Const alert General Appearance: cooperative Orientation / Consciousness: oriented to person HEENT hearing grossly normal bilaterally Head and Scalp: normal to inspection Face and Sinus: face symmetric Nose: external nose normal Mouth: oral and palatal mucosa normal Eyes conjunctivae normal General Eye: normal appearance of both eyes Neck full ROM General: normal visual inspection Lymph Lymphatic: no lymphadenopathy noted Chest inspection of chest normal and palpation of chest normal Chest: symmetrical chest wall rise Resp normal respiratory effort Effort and Inspection: able to speak in complete sentences Cardio regular rate GI non-distended Percussion: normal to percussion Rectal Exam: deferred Neuro Speech: speech normal Gait (Neuro): normal gait Lab / Micro Data Result Diagrams: 10/06/21 09:15 10/06/21 09:15 Labs: Laboratory Results - last 24 hr 10/06/21 09:15: WBC 5.8, RBC 5.85, Hgb 16.8 H, Hct 48.6, MCV 83.1, MCH 28.7, MCHC 34.6, RDW Std Deviation 43.2, RDW Coeff of Hari 14.3, Plt Count 328, MPV 10.2, Immature Gran % (Auto) 0.500, Neut % (Auto) 54.1, Lymph % (Auto) 32.9, [place] % (Auto) 9.7, Eos % (Auto) 2.1, Baso % (Auto) 0.7, Absolute Neuts (auto) 3.1, Absolute Lymphs (auto) 1.90, Nucleated RBC % 0 10/06/21 09:15: Sodium 136, Potassium 3.4 L, Chloride 104, Carbon Dioxide 25.0, Anion Gap 7, BUN 7, Creatinine 1.22, Estim Creat Clear Calc 82.90, Est GFR (MDRD) Af Amer 86, Est GFR (MDRD) Non-Af 71, BUN/Creatinine Ratio 5.7 L, Glucose 109 H, Calcium 10.3 H, Total Bilirubin 0.70, AST 17, ALT 33, Alkaline Phosphatase 48, Total Protein 8.3 H, Albumin 4.7, Globulin 3.6, Albumin/Globulin Ratio 1.3, Lipase 538 H 10/06/21 15:13: Urine Opiates Screen POSITIVE H, Urine Methadone Screen NEGATIVE, Ur Barbiturates Screen NEGATIVE, Ur Phencyclidine Scrn NEGATIVE, Ur Amphetamines Screen NEGATIVE, MDMA (Ecstasy) Screen NEGATIVE, U Benzodiazepines Scrn NEGATIVE, Urine Cocaine Screen NEGATIVE, U Cannabinoids Screen POSITIVE H, Ur Drug Screen Comment Micro: Microbiology 10/06/21 Unknown Nasal Secretion SARS-CoV-2 Antigen (Rapid) - Final ABG Data ABG results: ABG 10/06/21 09:17 Specimen Type Cancelled Sample Site Cancelled pH Cancelled Bicarbonate Actual Cancelled Total CO2 Cancelled Base Excess Cancelled O2 Saturation Cancelled O2 % Cancelled ABG pCO2 Cancelled ABG pO2 Cancelled Salvador Test Cancelled Respiration Rate Cancelled O2 Delivery Device Cancelled Liter Flow Cancelled Minute Volume Cancelled Vent Mode Cancelled Inspiratory Time Cancelled Expiratory Time Cancelled Tidal Volume Cancelled Mean Airway Pressure Cancelled POC PEEP Cancelled Peak Inspir Pressure Cancelled POC Pressure Suppt Cancelled Pressure Control Cancelled Pressure High Cancelled Pressure Low Cancelled Time High Cancelled Time Low Cancelled EPAP Cancelled IPAP Cancelled Blood Gas Comments Cancelled Crit Call To/Read Back Cancelled Blood Gas Notified Whom Cancelled Blood Gas Notified Time Cancelled Clinical Comments Cancelled Radiology Impression Abdomen/Pelvis CT 10/06/21 09:03 IMPRESSION: Scattered sigmoid diverticula. No other abnormality is seen. Electronically Signed: José Miguel Yanes MD at 10:17 EDT , Assessment & Plan Assessment/Plan (1) Epigastric pain: PLAN: The differential diagnosis for his abdominal pain does include marijuana hyperemesis, gastritis, gastroparesis secondary to marijuana, cyclic vomiting syndrome, duodenitis, peptic ulcer disease. Recommendation is PPI IV twice daily. N.p.o. Patient will likely need upper endoscopy evaluate his upper GI tract. He was explained alternatives, risk, benefits include nondistended bleeding, infection, sepsis, perforation, need for emergent . Of ASA of 1. (2) Elevated lipase: PLAN: The differential diagnosis for his elevated lipase would be duodenitis, vomiting as there is some gastric lipase present in the stomach. Less likely secondary to alcoholic pancreatitis. He will have his upper GI tract evaluated. He will possibly need a work-up for microlithiasis as an outpatient for an etiology of elevated lipase. Charges/Coding Visit Charges Inpatient E&M: 95357 Init Hosp L3
--- NOTE | 2021-10-06 18:26 | OP.EGD_ITS ---
Patient Name: Sandip Choi Procedure Date: 10/06/2021 6:05 PM Date of : 1985 Age: 36 Procedure: Upper GI endoscopy Indications: Epigastric abdominal pain Providers: Gamaliel Richardson DO Medicines: See the Anesthesia note for documentation of the administered medications Patient Profile: This is a 36 year old male. Refer to note in patient chart for documentation of history and physical. Patient has symptoms of acute epigastric abdominal pain. Complications: No immediate complications. Procedure: Pre-Anesthesia Assessment: - Prior to the procedure, a History and Physical was performed, and patient medications and allergies were reviewed. The patient is competent. The risks and benefits of the procedure and the sedation options and risks were discussed with the patient. All questions were answered and informed consent was obtained. Patient identification and proposed procedure were verified by the physician in the pre-procedure area. Mental Status Examination: alert and oriented. Airway Examination: normal oropharyngeal airway and neck mobility. Respiratory Examination: clear to auscultation. CV Examination: normal. Prophylactic Antibiotics: The patient does not require prophylactic antibiotics. Prior Anticoagulants: The patient has taken no previous anticoagulant or antiplatelet agents. After reviewing the risks and benefits, the patient was deemed in satisfactory condition to undergo the procedure. The anesthesia plan was to use moderate sedation / analgesia (conscious sedation). Immediately prior to administration of medications, the patient was re-assessed for adequacy to receive sedatives. The heart rate, respiratory rate, oxygen saturations, blood pressure, adequacy of pulmonary ventilation, and response to care were monitored throughout the procedure. The physical status of the patient was re-assessed after the procedure. After obtaining informed consent, the endoscope was passed under direct vision. Throughout the procedure, the patient's blood pressure, pulse, and oxygen saturations were monitored continuously. The gastroscope was introduced through the mouth, and advanced to the second part of duodenum. The upper GI endoscopy was accomplished without difficulty. The patient tolerated the procedure well. Moderate Sedation: Moderate (conscious) sedation was administered by the endoscopy nurse and supervised by the endoscopist. The patient's oxygen saturation, heart rate, blood pressure and response to care were monitored. Total physician intraservice time was 15 minutes. Scope In: 6:14:10 PM Scope Out: 6:19:12 PM Total Procedure Duration Time 0 hours 5 minutes 2 seconds Findings: LA Grade B (one or more mucosal breaks greater than 5 mm, not extending between the tops of two mucosal folds) esophagitis with no bleeding was found 37 to 40 cm from the incisors. Localized severe inflammation characterized by congestion (edema), erosions, erythema, friability and linear erosions was found in the gastric body. Biopsies were taken with a cold forceps for histology. Verification of patient identification for the specimen was done. Estimated blood loss was minimal. Localized moderate inflammation characterized by congestion (edema), friability and granularity was found in the duodenal bulb. Biopsies were taken with a cold forceps for histology. Verification of patient identification for the specimen was done. Estimated blood loss was minimal. Impression: - LA Grade B reflux esophagitis. - Chronic gastritis. Biopsied. - Duodenitis. Biopsied. Recommendation: - Discharge patient to home. - Clear liquid diet. - Use Protonix (pantoprazole) 40 mg PO BID for 8 weeks. - Use sucralfate tablets 1 gram PO QID for 2 weeks. - Continue present medications. Procedure Code(s): --- Professional --- 43843, Esophagogastroduodenoscopy, flexible, transoral; with biopsy, single or multiple 51307, 59, Moderate sedation services provided by the same physician or other qualified health daycare teacher performing the diagnostic or therapeutic service that the sedation supports, requiring the presence of an independent trained observer to assist in the monitoring of the patient's level of consciousness and physiological status; initial 15 minutes of intraservice time, patient age 5 years or older CPT copyright 2017 [employer]. All rights reserved. The codes documented in this report are preliminary and upon lodge officer review may be revised to meet current compliance requirements. Gamaliel Richardson DO 10/06/2021 6:25:49 PM This report has been signed electronically. Number of Addenda: 1 Note Initiated On: 10/06/2021 6:05 PM Addendum Number: 1 Addendum Date: 04/12/2022 6:20:24 AM MAC was used as sedation for this procedure. Gamaliel Richardson DO 04/12/2022 6:20:28 AM This report has been signed electronically.
--- NOTE | 2021-10-06 18:27 | OP.CCLET_ITS ---
04/12/2022 Denny Benton MD Re : Upper GI endoscopy procedure for Sandip Choi Dear Dr. Benton This procedure was performed on September. My impressions and recommendations are as follows: Impressions : - LA Grade B reflux esophagitis. - Chronic gastritis. Biopsied. - Duodenitis. Biopsied. Recommendations : - Discharge patient to home. - Clear liquid diet. - Use Protonix (pantoprazole) 40 mg PO BID for 8 weeks. - Use sucralfate tablets 1 gram PO QID for 2 weeks. - Continue present medications. My findings are described in the full procedure note, which is enclosed. If I can be of further assistance, please feel free to contact me at . Sincerely, Gamaliel Friend, 10/06/2021 6:25:49 PM This report has been signed electronically.
[2021-10-06] MEDS: Ondansetron 4 MG/2 ML Vial 8 MG IV (18:40)
[2021-10-06] MEDS: Scopolamine 1mg/72hr Patch 1 PATCH TD (18:42)
[2021-10-07 00:01] VITALS: BP 145/94; PULSE 68; RESP 18; TEMP 36.7; O2SAT 99
[2021-10-07] MEDS: 0.9% Normal Saline 1,000 ML 125 ML IV ×2 (00:35→08:53)
[2021-10-07 05:57] VITALS: BP 121/70; PULSE 56; RESP 18; TEMP 36.7; O2SAT 100
[2021-10-07] MEDS: Sucralfate 1 GM Tablet PO (05:59)
[2021-10-07] MEDS: Morphine 4 MG/ML Syringe IV (08:50)
[2021-10-07 09:30] VITALS: BP 123/80; PULSE 58; RESP 18; TEMP 36.4; O2SAT 98
--- NOTE | 2021-10-07 10:06 | PCM.DC ---
Discharge Instructions Diet Discharge Diet: Light diet - advance as tolerated Activity Discharge Activity: Return to Normal Activity Dressing / Incision Call your doctor if you observe: Inability to have a bowel movement and Uncontrolled pain Follow Up Care Test Results: Test results from this visit will be discussed in further detail at your follow-up appointment, if applicable. Discharge Plan Admission Admit Date/Time: 10/06/21 11:57 Primary Reason for Your Visit: Gastritis/esophagitis Attending Provider: Carlos Boyd Primary Care Provider: Denny Benton Instructions Forms: Work / School Excuse Discharge Orders/Prescriptions Prescriptions: New pantoprazole [Protonix] 40 mg tablet,delayed release (DR/EC) 40 mg PO BID Qty: 60 RF: 0 sucralfate 100 mg/mL suspension 1 g PO TIDCM Qty: 1000 RF: 0 Continued ondansetron 4 mg tablet,disintegrating 4 mg PO Q6H PRN (Reason: nausea and vomiting) Qty: 14 RF: 0 Discontinued famotidine [Pepcid] 20 mg tablet 20 mg PO DAILY Qty: 14 RF: 0 hydrocodone-acetaminophen [hydrocodone-acetaminophen] 1 TABLET tablet 1 tab PO Q6H PRN PRN (Reason: Pain) 3 Days Qty: 10 RF: 0 Referrals / Follow Up: Denny Benton MD [Primary Care Provider] - In 1 Week Friend,DO Gamaliel [STAFF PHYSICIAN] - Within 2 Weeks Disposition Disposition (needs filled in before D/C Order can be placed): Home, Self Care
--- NOTE | 2021-10-07 10:25 | DS.PCM_ITS ---
Documented by User: Ashanti Solano NP, FORGING ENGINEER-C 10/07/21 10:31 Providers Date of Admission: 10/06/21 Date of Discharge: 10/07/21 Primary Care Physician: Dr. Denny Benton MD Consultations 10/06/21 14:26 Consult: Gastroenterology Routine Consulting Provider: Michael G[facility] Reason for Consult: abdominal pain EMERGENT Consult: No MD Notified: Yes Date Notified: 10/06/21 Time Notified: 12:03 Method of Notification: Verbal Reason For Visit: ABDOMINAL pain Diagnosis Discharge Diagnosis (1) Epigastric pain: Status: Inactive Code(s): R10.13 - Epigastric pain (2) Elevated lipase: Status: Acute Code(s): R74.8 - Abnormal levels of other serum enzymes Medications at Discharge Home Medications ondansetron 4 mg PO Q6H PRN #14 tab 09/29/21 pantoprazole [Protonix] 40 mg PO BID #60 tab 10/07/21 sucralfate 1 g PO TIDCM #1000 ml 10/07/21 Hospital Course Operations None Procedures EGD Summary of Care Provided Hospital Course: Patient is a 36-year-old male admitted 10/06/2021 due to abdominal pain. 1. Intractable diffuse abdominal pain, gastritis/esophagitis- Lab and imaging unremarkable with exception of mildly elevated lipase. GI consulted. Patient underwent EGD which showed grade B reflux esophagitis, chronic gastritis and duodenitis, biopsied. Continue Protonix 40 mg twice daily for 8 weeks and Carafate 4 times daily for 2 weeks. Follow-up with PCP in 1 week and GI in 2 weeks. 2. Marijuana use- [place] report shows CBD rx. Patient states he is being prescribed for PTSD/Anxiety. 3. Tobacco dependence-declines nicotine replacement patch. Encouraged cessation . Physical Exam Const alert, oriented x3 and no apparent distress Orientation / Consciousness: awake, oriented to person, oriented to place and oriented to time HEENT normocephalic Mouth: dry mucous membranes Eyes PERRL, EOMs intact bilaterally and conjunctivae normal Neck no lymphadenopathy Resp normal respiratory effort and clear to auscultation bilaterally Cardio regular rate, regular rhythm and no murmurs Peripheral Pulses: pulses 2+ throughout GI normal to inspection, nondistended, normoactive bowel sounds and non-distended Palpation: non-tender Extremity normal to inspection Skin no rashes or lesions noted Lesions: no lesions Rashes: no rashes Trauma: no lacerations or abrasions Neuro CN's II-XII intact bilaterally, no focal motor deficits, no sensory deficits noted and deep tendon reflexes 2+ bilaterally Psych mental status grossly normal and affect normal Patient seen and examined prior to discharge. Physical assessment as noted above. Patient is stable for discharge with follow up recommendations as noted above. This patient was seen by APRIL Clemons under the supervision of Dr. Boyd. Time spent examining patient, reviewing data and subsequent management of care: 14 minutes Weight / BMI Weight Weight: 192 lb 10.944 oz Body Mass Index (BMI) 27.6 ABG / Lab / Microbiology Data Result Diagrams: 10/06/21 09:15 10/06/21 09:15 Laboratory: Laboratory Results - last 24 hr 10/06/21 15:13: Urine Opiates Screen POSITIVE H, Urine Methadone Screen NEGATIVE, Ur Barbiturates Screen NEGATIVE, Ur Phencyclidine Scrn NEGATIVE, Ur Amphetamines Screen NEGATIVE, MDMA (Ecstasy) Screen NEGATIVE, U Benzodiazepines Scrn NEGATIVE, Urine Cocaine Screen NEGATIVE, U Cannabinoids Screen POSITIVE H, Ur Drug Screen Comment Microbiology: Microbiology 10/06/21 Unknown Nasal Secretion SARS-CoV-2 Antigen (Rapid) - Final D/C Instructions Discharge Diet: Light diet - advance as tolerated Call your doctor if you observe: Inability to have a bowel movement and Uncontrolled pain Meaningful Use Info Meaningful Use Diagnoses (Choose all that apply): None applicable Discharge Plan Admission Admit Date/Time: 10/06/21 11:57 Primary Reason for Your Visit: Gastritis/esophagitis Attending Provider: Carlos Boyd Primary Care Provider: Denny Benton Instructions Forms: Work / School Excuse Discharge Orders/Prescriptions Prescriptions: New pantoprazole [Protonix] 40 mg tablet,delayed release (DR/EC) 40 mg PO BID Qty: 60 RF: 0 sucralfate 100 mg/mL suspension 1 g PO TIDCM Qty: 1000 RF: 0 Continued ondansetron 4 mg tablet,disintegrating 4 mg PO Q6H PRN (Reason: nausea and vomiting) Qty: 14 RF: 0 Discontinued famotidine [Pepcid] 20 mg tablet 20 mg PO DAILY Qty: 14 RF: 0 hydrocodone-acetaminophen [hydrocodone-acetaminophen] 1 TABLET tablet 1 tab PO Q6H PRN PRN (Reason: Pain) 3 Days Qty: 10 RF: 0 Referrals / Follow Up: Denny Benton MD [Primary Care Provider] - In 1 Week Gamaliel Richardson DO [STAFF PHYSICIAN] - Within 2 Weeks Disposition Disposition (needs filled in before D/C Order can be placed): Home, Self Care Documented by User: Dr. Carlos Boyd DO 10/08/21 12:55 Providers Date of Admission: 10/06/21 Reason For Visit: ABDOMINAL pain Medications at Discharge Home Medications ondansetron 4 mg PO Q6H PRN #14 tab 09/29/21 pantoprazole [Protonix] 40 mg PO BID #60 tab 10/07/21 sucralfate 1 g PO TIDCM #1000 ml 10/07/21 ABG / Lab / Microbiology Data Result Diagrams: 10/06/21 09:15 10/06/21 09:15 Discharge Plan Admission Admit Date/Time: 10/06/21 11:57 Primary Reason for Your Visit: Gastritis/esophagitis Attending Provider: Carlos Boyd Primary Care Provider: Denny Benton Instructions Forms: Work / School Excuse Discharge Orders/Prescriptions Prescriptions: New pantoprazole [Protonix] 40 mg tablet,delayed release (DR/EC) 40 mg PO BID Qty: 60 RF: 0 sucralfate 100 mg/mL suspension 1 g PO TIDCM Qty: 1000 RF: 0 Continued ondansetron 4 mg tablet,disintegrating 4 mg PO Q6H PRN (Reason: nausea and vomiting) Qty: 14 RF: 0 Discontinued famotidine [Pepcid] 20 mg tablet 20 mg PO DAILY Qty: 14 RF: 0 hydrocodone-acetaminophen [hydrocodone-acetaminophen] 1 TABLET tablet 1 tab PO Q6H PRN PRN (Reason: Pain) 3 Days Qty: 10 RF: 0 Referrals / Follow Up: Denny Benton MD [Primary Care Provider] - In 1 Week Jenni Richardsonaan, DO [STAFF PHYSICIAN] - Within 2 Weeks Disposition Disposition (needs filled in before D/C Order can be placed): Home, Self Care Charges/Coding Addendum Addendum: Patient was seen on 10/07/2021 independently of Ashanti Solano, he appeared to have minimal abdominal discomfort, he appears stable for discharge. On examination he appeared in good health and spirits. Vital signs as documented. Skin warm and dry and without overt rashes. Neck without JVD, neck was supple, trachea midline, thyroid was normal. Lungs clear bilaterally, normal air movement was noted. Heart exam notable for regular rhythm, normal sounds and absence of murmurs, rubs or gallops. Abdomen unremarkable and without evidence of organomegaly, masses, or abdominal aortic enlargement. Bowel sounds are present, abdomen is not distended. Extremities nonedematous, no cyanosis was noted, no clubbing was noted. Neuro: Cranial nerves II through XII are grossly intact, no focal motor deficits were noted, sensation to light touch and pinprick intact, motor exam 5/5 throughout. Psych: Patient is alert and oriented x3, he does not appear anxious or depressed, he does not appear agitated. Impression #1 grade B reflux esophagitis-treatment as indicated by gastroenterology-Protonix and Carafate slurry, follow-up with gastroenterology #2 chronic gastritis-patient will follow up with GI, continue above treatment #3 duodenitis-continue treatment as above, patient will follow up with GI #4 PTSD-patient is prescribed medical marijuana for this I have reviewed Ashanti Solano's discharge summary including her medical assessment and plan of care and with the above additions endorse it. Total clinical time spent by myself addressing the patient's medical issues, reviewing the patient's medical data, and collaborating with the patient's care team: 20 minutes Visit Charges OBSV E&M: 08165 Observation care discharge
[2021-10-07] MEDS: Potassium Chloride Oral Tablet 20 MEQ PO (10:48)
== END 2021-10-07 10:09 | disposition home or self-care (01) ==
LOC: ED 09:09 → PCU 12:44
PROVIDERS: Internal Medicine Gastroenterology; Admitting Provider Internal Medicine; Emergency Provider Student in an Organized Health Care Education/Training Program; PCP Family Medicine; Visit Provider Internal Medicine
PROC: 0DJ08ZZ Inspection of Upper Intestinal Tract, Via Natural or Artificial Opening Endoscopic (ICD-10-PCS; CPT 43235; principal; 2021-10-06 13:30)
DX: K21.00 Gastro-esophageal reflux disease with esophagitis, without bleeding (principal); F17.210 Nicotine dependence, cigarettes, uncomplicated; F43.10 Post-traumatic stress disorder, unspecified; R74.8 Abnormal levels of other serum enzymes; K57.30 Diverticulosis of large intestine without perforation or abscess without bleeding; K29.80 Duodenitis without bleeding; K29.50 Unspecified chronic gastritis without bleeding; Z79.899 Other long term (current) drug therapy; F41.9 Anxiety disorder, unspecified
CPT/HCPCS: 43239; 36600; 74177; 80053; 80307; 83690; 85025; 87426; 88305; 88342; 96361; 96365; 96375; 96376; 99218; 99284; 99406; J7030; J7120; Q9967; A4216; G0378; J2405

== ENCOUNTER → 2021-11-23 | Outpatient (CLI) | payer MEDICAID, SELFPAY ==
[2021-11-23 15:26] LABS: Cholesterol 161 mg/dL (200); High Density Lipoprotein 45 mg/dL; Lipase 213 U/L (73-393); Triglycerides 194 mg/dL; Very Low Density Lipoprotein 39 mg/dL (5-40)
== END | disposition home or self-care (01) ==
LOC: LAB 13:44
PROVIDERS: PCP Family Medicine; Visit Provider Nurse Practitioner Adult Health
DX: K85.90 Acute pancreatitis without necrosis or infection, unspecified (principal)
CPT/HCPCS: 36415; 80061; 83690

== ENCOUNTER → 2022-02-10 | Outpatient (CLI) | payer MEDICAID, SELFPAY ==
[2022-02-16 21:54] LABS: Fats, Neutral Normal (.); Fats, Total Normal (.)
== END | disposition home or self-care (01) ==
LOC: LAB 15:40
PROVIDERS: PCP Family Medicine; Referring Provider Nurse Practitioner Adult Health; Visit Provider Nurse Practitioner Adult Health
DX: R10.13 Epigastric pain (principal)
CPT/HCPCS: 82653; 82705

== ENCOUNTER 2022-02-11 14:08 | Emergency (ER) | payer MEDICAID, SELFPAY ==
[2022-02-11 14:09] VITALS: BP 144/87; PULSE 77; RESP 18; TEMP 36.6; O2SAT 97; BMI 30.5
--- NOTE | 2022-02-11 14:33 | CT_ITS ---
STUDY: CT ABDOMEN AND PELVIS WITHOUT CONTRAST REASON FOR EXAM: Male, 36 years old. Left flank pain RADIATION DOSAGE (If Supplied By Facility): CTDIvol = ( 8.42 ) mGy, DLP = ( 399.57 ) mGycm TECHNIQUE: Transaxial images were obtained from the dome of the diaphragm to the symphysis pubis without oral contrast, and without intravenous contrast. Sagittal and coronal images were reconstructed. Individualized dose optimization techniques were used for this CT. COMPARISON: 10/06/2021 FINDINGS: The visualized lung bases are unremarkable. The visualized portions of the heart are within normal limits. Normal liver. The gallbladder is contracted. Normal spleen. Normal pancreas. Normal bilateral adrenal glands. Normal right kidney. Normal left kidney. Normal visualized stomach. Normal small intestine. There are a few scattered colonic diverticula consistent with diverticulosis. The appendix is visualized and appears normal. Normal abdominal aorta. Normal inferior vena cava. Normal retroperitoneum. Nondistended urinary bladder. There is a small umbilical hernia containing fat. Normal osseous structures. CT/Abdomen/Pelvis without Cont IMPRESSION: No hydronephrosis or urinary tract calcifications. Electronically Signed: Jefferson Gonzalez MD (Brooks) at 15:10 EDT Reading Location ID and State: [facility] / [place] , Service support ,
[2022-02-11] MEDS: 0.9% Normal Saline 1,000 ML 1000 ML IV (14:43)
[2022-02-11] MEDS: Ketorolac 30 MG/ML Syringe IV (14:43)
[2022-02-11] MEDS: Morphine 4 MG/ML Syringe IV (14:44)
[2022-02-11] MEDS: Ondansetron 4 MG/2 ML Vial IV (14:44)
[2022-02-11 14:46] LABS: Red Blood Cells-Urine 0 SEEN /hpf (0-5)
[2022-02-11 14:49] LABS: Color, Urine Yellow (Yellow); Glucose, Dipstick Normal (Normal); Ketone-Dipstick 5 mg/dl (Negative); Leukocyte Esterase-Dipstick 25 /ul (Negative); Nitrite-Dipstick Negative (Negative); Occult Blood-Urine Negative /ul (Negative); Protein-Dipstick 15 mg/dl (Negative); Urine Bilirubin Dipstick Negative (Negative); Urine Clarity Clear (Clear); Urine Urobilinogen 1 mg/dl (Normal)
--- NOTE | 2022-02-11 14:49 | ED.VIS.BACK ---
HPI History of Present Illness Chief Complaint: Back Informant: patient Onset/Context/Timing Onset: Days (3) Context: Sudden Onset Timing: Continuous Quality: Sharp and Aching Location: Lumbar and - (Left flank) Worsened by: improves with Movement Relieved by: Remaining Still Associated Symptoms Associated Symptoms: Negative for Numbness, Tingling, Radiation to Right Leg, Radiation to Left Leg, Fever, Abdominal Pain, Dysuria, Unable to Ambulate, Unable to Transfer, Urinary Retention, Urinary Incontinence, Constipation or Fecal Incontinence Narrative Narrative: Presents with back pain that has been constant for the past 3 days. Patient states it began rather suddenly while he was sleeping. Patient states he rolled over while he was sleeping and felt sharp pain in his left flank and back area. Patient describes the pain as sharp and aching. Patient states it is worse with movement. Patient states it is better whenever he is able to lay still. Patient denies any radiation of the pain. Patient denies any numbness or tingling. Patient denies any bowel or bladder changes. Patient denies any saddle anesthesia. Patient denies any dysuria or hematuria. [facility] Medical History PTSD (post-traumatic stress disorder) Home Medications pantoprazole 40 mg tablet,delayed release (Protonix) 40 mg PO BID #60 tabs 11/23/21 [Rx Last Taken Unknown] hydrocodone-acetaminophen 5-325mg 5mg-325mg 1 tab PO Q6H PRN PRN Pain 3 days #10 TABLETS 02/11/22 [Rx Last Taken Unknown] Allergy/AdvReac Type Severity Reaction Status Date / Time No Known Allergies Allergy Verified 02/11/22 14:09 Family History (Updated 10/06/21 @ 14:08 by Ashanti Solano NP, BUSINESS TEST ANALYST-C) Mother Diabetes Father , when patient was 5 years old, traumatic accident. No problems noted. Social History Smoking Status: Current every day smoker tobacco type: cigarettes alcohol intake: current alcohol intake frequency: a few times a week substance use type: marijuana ROS ROS ED Constitutional Constitutional ED: Denies chills or fever(s) Eyes Eyes: Denies blurry vision or change in vision ENT ENT ED: Denies rhinorrhea or sore throat Cardiovascular Cardiovascular: Denies chest pain or palpitations Respiratory/Chest Respiratory/Chest: Reports dyspnea; Denies cough Gastrointestinal Gastrointestinal: Denies nausea or vomiting Genitourinary Genitourinary ED: Denies dysuria or hematuria Musculoskeletal Musculoskeletal: Reports back pain; Denies neck pain Integumentary Denies abscess or rash Neurologic Neurologic: Denies headache(s) or weakness Allergic/Immunologic Allergic/Immunologic ED: Denies mouth swelling or urticaria EXAM Physical Exam Const Vital Signs: 02/11/22 14:09 Temperature 97.8 F Temperature Source Temporal Pulse Rate 77 Respiratory Rate 18 Blood Pressure 144/87 H Blood Pressure Mean 106 Pulse Ox 97 Oxygen Delivery Method Room Air Positive well nourished and well developed General Appearance ED: well developed and NAD HEENT Reports moist mucous membranes Neck supple and no JVD Resp normal respiratory effort and clear to auscultation bilaterally Cardio regular rate and regular rhythm GI normal to inspection, nondistended, normoactive bowel sounds, soft to palpation and non-tender Back/Spine General Back: CVA tenderness left Lumbar Spine / Lower Back: ROM limited Extremity normal to inspection General Extremety ED: Negative for tenderness Neuro oriented x3 and no sensory deficits noted Sensorium / Orientation: alert Motor Exam: strength 5/5 throughout Psych mental status grossly normal MDM MDM MDM Narrative Medical decision making narrative: Patient was given IV fluids, morphine, Zofran, and Toradol here. CBC was within normal limits. Comprehensive metabolic profile showed a slightly elevated creatinine of 1.39 but this was consistent with prior results. Urinalysis does not show any evidence of urinary tract infection. CT scan of the abdomen and pelvis was obtained. There is no acute process. There is no ureteral or renal calculi. This was interpreted by the radiologist and reviewed by myself. Patient was given a dose of [place] here. Patient was advised of his findings. Patient was given a prescription for a short course of [place]. Patient was instructed to use ice to the area. Patient was instructed to follow-up with his primary care physician in 5 to 7 days. Patient understood and was agreeable with the plan. All questions were answered. Lab Data Attestation: I reviewed the patient's lab results. Labs: Laboratory Results - last 24 hr 02/11/22 02/11/22 02/11/22 14:40 14:42 14:42 WBC 8.2 RBC 5.25 Hgb 14.5 Hct 44.7 MCV 85.1 MCH 27.6 MCHC 32.4 RDW Std Deviation 46.5 H RDW Coeff of Hari 14.8 H Plt Count 256 MPV 10.6 Immature Gran % (Auto) 0.200 Neut % (Auto) 37.1 L Lymph % (Auto) 50.7 H [place] % (Auto) 9.9 Eos % (Auto) 1.7 Baso % (Auto) 0.4 Absolute Neuts (auto) 3.0 Absolute Lymphs (auto) 4.14 Nucleated RBC % 0 Sodium 142 Potassium 3.8 Chloride 112 H Carbon Dioxide 27.0 Anion Gap 3 L BUN 13 Creatinine 1.39 H Estim Creat Clear Calc 70.40 Est GFR (MDRD) Af Amer 74 Est GFR (MDRD) Non-Af 61 BUN/Creatinine Ratio 9.4 L Glucose 85 Calcium 9.5 Total Bilirubin 0.20 AST 25 ALT 39 Alkaline Phosphatase 48 Total Protein 7.3 Albumin 4.0 Globulin 3.3 Albumin/Globulin Ratio 1.2 Urine Color Yellow Urine Clarity Clear Urine pH 6.0 Ur Specific [place] 1.020 Urine Protein 15 H Urine Glucose (UA) Normal Urine Ketones 5 H Urine Occult Blood Negative Urine Nitrite Negative Urine Bilirubin Negative Urine Urobilinogen 1 H Ur Leukocyte Esterase 25 H Urine RBC 0 SEEN Urine WBC 0-5 SEEN Ur Squamous Epith Cells 0-5 SEEN Urine Bacteria 1+ Urine Mucus 1+ Radiography Diagnostic Testing: Clinical Impression(s) from Imaging Studies Abdomen/Pelvis CT 02/11/22 14:33 IMPRESSION: No hydronephrosis or urinary tract calcifications. Electronically Signed: Jefferson Gonzalez MD (Brooks) at 15:10 EDT , Discharge Plan Triage Chief Complaint: Back ED Provider: Steve Lopez Dx/Rx/DC Orders Clinical Impression: Lumbar strain, Left flank pain Instructions: ED Back Sprain/Strain Prescriptions: New hydrocodone-acetaminophen [hydrocodone-acetaminophen] 5-325 mg tablet 1 tab PO Q6H PRN PRN (Reason: Pain) 3 Days Qty: 10 0RF No Action pantoprazole [Protonix] 40 mg tablet,delayed release (DR/EC) 40 mg PO BID Qty: 60 1RF Primary Care Provider: Denny Benton Referrals: Denny Benton MD [Primary Care Provider] - 5-7 Days Disposition Disposition: Home, Self Care
[2022-02-11 15:03] LABS: ALB/GLOB Ratio 1.2 RATIO (0.9-2.4); AST(SGOT) 25 U/L (15-37); Alanine Aminotransfer ALT/SGPT 39 U/L (16-61); Alkaline Phosphatase 48 U/L (45-117); Anion Gap 3 (5-15); BUN 13 mg/dL (7-18); BUN/Creat Ratio 9.4 RATIO (10-20); Calcium,Total 9.5 mg/dL (8.5-10.1); Chloride 112 mmol/L (98-107); Creatinine, Serum 1.39 mg/dL (0.70-1.30); EST Glomerular Filtration Rate 61 mL/min (>60); Est Glom Filt Rate - Afr Amer 74 mL/min (>60); Globulin 3.3 g/dL (2.2-4.2); Glucose 85 mg/dL (74-106); Potassium 3.8 mmol/L (3.5-5.1); Protein, Total 7.3 g/dL (6.4-8.2); Sodium Level 142 mmol/L (136-145)
[2022-02-11 15:04] LABS: Absolute Lymphocyte Count 4.14 X10^3/uL (0.83-4.51); Basophil# 0.03 X10^3/uL; Basophil% 0.4 % (0-1); Eosinophil# 0.14 X10^3/uL; Eosinophils% 1.7 % (0-5); Hematocrit 44.7 % (40-54); Hemoglobin 14.5 g/dL (13.0-16.5); Lymphocyte # 4.14 X10^3/ul (0.83-4.51); Lymphocyte % 50.7 % (19-41); Mean Corp Hgb Conc 32.4 g/dL (32-36); Mean Corpuscular Hgb 27.6 pg (27.0-32.0); Mean Corpuscular Volume 85.1 fL (80-94); Mean Platelet Vol. 10.6 fl (6.2-12.0); Monocyte# 0.81 X10^3/uL; Monocyte% 9.9 % (0-10); NRBC Flagged by Analyzer 0 % (0-5); Neutrophil # 3.03 X10^3/uL (2.7-7.7); Neutrophil % 37.1 % (47-70); Platelet Count 256 K/mm3 (150-450); RBC Distribution Width CV 14.8 % (11.6-14.6); RBC Distribution Width SD 46.5 fl (35.1-43.9); Red Blood Count 5.25 M/mm3 (4.6-6.2); White Blood Count 8.2 K/mm3 (4.4-11.0)
[2022-02-11 15:13] LABS: Bacteria 1+ /hpf (None Seen); Mucous, Urine 1+ /hpf (<or=2+); Squamous Epithelial Cells - UA 0-5 SEEN /hpf (0-5); White Blood Cells 0-5 SEEN /hpf (0-5)
[2022-02-11 15:43] VITALS: BP 128/78; PULSE 66; RESP 14; TEMP 37.2; O2SAT 99
[2022-02-11] MEDS: HYDROcodone Bitartrate/Apap 5/325 Tablet PO (15:43)
== END 2022-02-11 15:51 | disposition home or self-care (01) ==
PROVIDERS: Emergency Provider Emergency Medicine; PCP Family Medicine; Visit Provider Emergency Medicine
DX: S39.012A Strain of muscle, fascia and tendon of lower back, initial encounter (principal); R10.9 Unspecified abdominal pain; F17.210 Nicotine dependence, cigarettes, uncomplicated; F12.90 Cannabis use, unspecified, uncomplicated; X58.XXXA Exposure to other specified factors, initial encounter
CPT/HCPCS: 74176; 80053; 81001; 85025; 96374; 96375; 99284; J7030; A4216; J2405

== ENCOUNTER 2022-08-29 18:28 | Emergency (ER) | payer MEDICAID, SELFPAY ==
[2022-08-29 18:29] VITALS: BP 156/92; PULSE 68; RESP 18; TEMP 36.6; O2SAT 100; BMI 30.4
[2022-08-29] MEDS: Ondansetron 4 MG/2 ML Vial IV (20:13)
[2022-08-29] MEDS: 0.9% Normal Saline 1,000 ML 1000 ML IV (20:13)
[2022-08-29] MEDS: Morphine 4 MG/ML Syringe IV ×2 (20:14→22:15)
[2022-08-29] MEDS: Famotidine 200 MG/20 ML MDV 20 MG in 0.9% Normal Saline (Pres. free 8 ML 300 MG IV (20:16)
--- NOTE | 2022-08-29 20:16 | EDS_ITS ---
HPI HPI - GI History of Present Illness Chief Complaint: Abd Pain Informant: patient Narrative Narrative: Presents with multiple emesis 2 hours prior to arrival additional 2 loose stools. History of daily marijuana use. Alcohol every other day. He is followed by GI Dr. Friend. He states he had a recent endoscopy. He states he was told gastritis. Denies any abdominal surgeries. He denies any recent antibiotic use. After evaluation review of records endoscopy in September of last year esophagitis with gastritis. He was placed on a PPI along with Carafate. He had multiple visits last time was in March with GI. They added amitriptyline. Apparent history of pancreatitis with his gastritis in the past. Discussion of further work-up as an outpatient in March in the office. Prior similar symptoms: Yes PFSH PFSH Medical History PTSD (post-traumatic stress disorder) Home Medications pantoprazole 40 mg tablet,delayed release (Protonix) 40 mg PO BID #60 tabs 11/23/21 [Rx Last Taken Unknown] amitriptyline 25 mg tablet 25 mg PO QHS #90 tabs 04/06/22 [Rx Last Taken Unknown] dicyclomine 20 mg tablet 20 mg PO TID abdominal cramping #10 tabs 08/29/22 [Rx Last Taken Unknown] ondansetron 4 mg disintegrating tablet 4 mg PO Q8H PRN PRN Nausea #10 tabs 08/29/22 [Rx Last Taken Unknown] Allergy/AdvReac Type Severity Reaction Status Date / Time No Known Allergies Allergy Verified 08/29/22 18:28 Family History Mother Diabetes Father , when patient was 5 years old, traumatic accident. No problems noted. Social History Smoking Status: Current every day smoker tobacco type: cigarettes alcohol intake: current alcohol intake frequency: a few times a week substance use type: marijuana ROS ROS ED Constitutional Constitutional ED: Denies chills, fever(s) or sweats Eyes Eyes: Denies change in vision ENT ENT ED: Denies dysphagia or sore throat Cardiovascular Cardiovascular: Denies chest pain, leg edema, palpitations or racing heartbeat Respiratory/Chest Respiratory/Chest: Denies cough, dyspnea or dyspnea on exertion Gastrointestinal Gastrointestinal: Reports diarrhea, nausea and vomiting; Denies abdominal pain Genitourinary Genitourinary ED: Denies dysuria, hematuria or urinary frequency Musculoskeletal Musculoskeletal: Denies back pain, extremity pain or neck pain Integumentary Denies rash or wounds Neurologic Neurologic: Denies headache(s), paresthesias or weakness EXAM Physical Exam Const Vital Signs: 08/29/22 18:29 Temperature 97.8 F Temperature Source Temporal Pulse Rate 68 Respiratory Rate 18 Blood Pressure 156/92 H Blood Pressure Mean 113 Pulse Ox 100 Oxygen Delivery Method Room Air Positive well nourished and well developed Constitutional Narrative: nontoxic, uncomfortable General Appearance ED: well developed HEENT Reports moist mucous membranes normocephalic and atraumatic Eyes PERRL, EOMs intact bilaterally and conjunctivae normal General Eye ED: Yes normal appearance of both eyes Neck no lymphadenopathy and supple General: Negative for tenderness Chest Wall Chest: Negative for tenderness Resp normal respiratory effort and normal air movement Effort and Inspection: symmetric chest movement; Negative for respiratory distress Cardio regular rate, regular rhythm and no murmurs Peripheral Pulses: pulses 2+ throughout GI normal to inspection, nondistended, normoactive bowel sounds GI Narrative: Mild epigastric mid abdominal tenderness negative Loya's McBurney's tenderness. Palpation: Negative for guarding or rebound tenderness present Back/Spine no CVA tenderness and no thoracic nor lumbar tenderness Extremity normal to inspection General Extremety ED: Negative for edema or tenderness General Extremity: Negative for edema Neuro oriented x3 and no sensory deficits noted Sensorium / Orientation: awake and alert Skin no rashes or lesions noted and no wounds MDM MDM MDM Narrative Medical decision making narrative: Interventions / MDM: Differential diagnosis: Gastroenteritis, cannabis hyperemesis, pancreatitis, peptic ulcer disease, perforation Diagnosis considered but do not suspect: N/A My EKG interpretation: N/A Imaging independently reviewed and interpreted by myself: CT abdomen pelvis with IV contrast: No perforation, nonspecific small and large bowel loops more consistent with gastroenteritis. External documents reviewed: N/A Test considered but not ordered:N/A ED course: Patient uncomfortable epigastric tenderness and mid abdominal tenderness every other day alcohol use. Also known gastritis in esophagitis. Cannabis use. However does report diarrhea. He denies any recent antibiotics for concerns for C. difficile. Patient treated with Pepcid Zofran morphine, IV fluids. Labs had a leukocytosis of 14.8. No more lipase normal creatinine normal liver. Reevaluation pain was improving however still there due to the leukocytosis discussed CT scan this is obtained noting enteritis findings. No perforations. He was traditionally with morphine prior to the scan. Re-evaluation: At 2300, soft abdomen clinically much more improved, he is comfortable. He is tolerating oral fluids. With vomiting and diarrhea less likely cannabis hyperemesis at this time. Vomiting diarrhea with no C. difficile risk factors discussed gastroenteritis. He will continue oral fluids, prescription for Zofran and Bentyl for meds to bed for the patient. Work note given he will follow-up with his GI doctor. Return precautions. All questions were answered. Disposition discussed with patient/family/significant other: Patient Case discussed with consulting clinician: N/A Lab Data Attestation: I reviewed the patient's lab results. Labs: Laboratory Results - last 24 hr 08/29/22 08/29/22 08/29/22 20:10 20:10 21:27 WBC 14.8 H RBC 5.80 Hgb 15.9 Hct 51.0 MCV 87.9 MCH 27.4 MCHC 31.2 L RDW Std Deviation 51.5 H RDW Coeff of Hari 16.7 H Plt Count 288 MPV 10.0 Immature Gran % (Auto) 0.700 Neut % (Auto) 78.1 H Lymph % (Auto) 10.6 L [place] % (Auto) 9.9 Eos % (Auto) 0.3 Baso % (Auto) 0.4 Absolute Neuts (auto) 11.5 H Absolute Lymphs (auto) 1.57 Nucleated RBC % 0 Sodium Cancelled 140 Potassium Cancelled 3.8 Chloride Cancelled 109 H Carbon Dioxide Cancelled 23.0 Anion Gap Cancelled 8 BUN Cancelled 12 Creatinine Cancelled 1.01 Estim Creat Clear Calc Cancelled 95.94 Est GFR (MDRD) Af Amer Cancelled 106 Est GFR (MDRD) Non-Af Cancelled 88 BUN/Creatinine Ratio Cancelled 11.9 Glucose Cancelled 113 H Calcium Cancelled 9.7 Total Bilirubin Cancelled 0.50 Direct Bilirubin Cancelled 0.09 AST Cancelled 26 ALT Cancelled 44 Alkaline Phosphatase Cancelled 49 Total Protein Cancelled 7.8 Albumin Cancelled 4.4 Globulin Cancelled 3.4 Lipase Cancelled 169 Radiography Diagnostic Testing: Clinical Impression(s) from Imaging Studies Abdomen/Pelvis CT 08/29/22 21:43 IMPRESSION: Fluid filled loops of large and small bowel which may represent mild enteritis with incipient diarrhea. No other acute abnormalities identified. Electronically Signed: Andrés Cummings MD at 22:21 EST , Discharge Plan Triage Chief Complaint: Abd Pain ED Provider: Yunior Hassan Dx/Rx/DC Orders Clinical Impression: Gastroenteritis, Epigastric pain, Leukocytosis Instructions: ED Gastroenteritis, Noninfectious Prescriptions: New ondansetron [ondansetron] 4 mg tablet,disintegrating 4 mg PO Q8H PRN PRN (Reason: Nausea) Qty: 10 0RF dicyclomine 20 mg tablet 20 mg PO TID Qty: 10 0RF No Action pantoprazole [Protonix] 40 mg tablet,delayed release (DR/EC) 40 mg PO BID Qty: 60 1RF amitriptyline 25 mg tablet 25 mg PO QHS Qty: 90 1RF Stand Alone Forms: ED Work / School Excuse Primary Care Provider: Denny Benton Referrals: Denny Benton MD [Primary Care Provider] - 3-5 Days Gamaliel Richardson DO [Med Staff - Active Staff] - 1-2 Weeks Disposition Disposition: Home, Self Care
[2022-08-29 20:18] LABS: Absolute Lymphocyte Count 1.57 X10^3/uL (0.83-4.51); Absolute Neutrophil Count 11.5 X10^3/uL (2.0-7.7); Basophil# 0.06 X10^3/uL; Basophil% 0.4 % (0-1); Eosinophil# 0.04 X10^3/uL; Eosinophils% 0.3 % (0-5); Hemoglobin 15.9 g/dL (13.0-16.5); Lymphocyte # 1.57 X10^3/ul (0.83-4.51); Lymphocyte % 10.6 % (19-41); Mean Corp Hgb Conc 31.2 g/dL (32-36); Mean Corpuscular Hgb 27.4 pg (27.0-32.0); Mean Corpuscular Volume 87.9 fL (80-94); Monocyte# 1.47 X10^3/uL; Monocyte% 9.9 % (0-10); NRBC Flagged by Analyzer 0 % (0-5); Neutrophil # 11.54 X10^3/uL (2.7-7.7); Neutrophil % 78.1 % (47-70); Platelet Count 288 K/mm3 (150-450); RBC Distribution Width CV 16.7 % (11.6-14.6); RBC Distribution Width SD 51.5 fl (35.1-43.9); White Blood Count 14.8 K/mm3 (4.4-11.0)
--- NOTE | 2022-08-29 21:43 | CT_ITS ---
EXAM: CT ABDOMEN AND PELVIS WITH INTRAVENOUS CONTRAST CLINICAL INDICATION: pain TECHNIQUE: Helically acquired images were obtained of the abdomen and pelvis with intravenous contrast. This CT exam was performed using one or more of the following dose reduction techniques: automated exposure control, adjustment of the mA and/or kV according to patient size, and/or use of iterative reconstruction technique. This report was created using [email or web address] report generation technology. CONTRAST: IV 100mL [id number]-370 COMPARISON: 02/11/2022 FINDINGS: LOWER THORAX: Unremarkable. Lung bases are clear. No cardiomegaly. No significant pericardial effusion. ABDOMEN: LIVER: Unremarkable. Homogeneous. No focal mass. GALLBLADDER AND BILE DUCTS: Unremarkable. No calcified gallstones. No gallbladder distention or wall edema. No intra- or extrahepatic biliary ductal dilation. PANCREAS: Unremarkable. No focal cystic or solid mass. SPLEEN: Unremarkable. Normal size without focal cystic or solid mass. ADRENALS: Unremarkable. No nodules. KIDNEYS AND URETERS: Unremarkable. Normal renal size and position. No hydronephrosis. STOMACH AND BOWEL: There are fluid-filled loops of small bowel which may represent mild enteritis. There is fluid within the colon which may represent incipient diarrhea. No stomach or bowel distention. PELVIS: APPENDIX: No evidence of acute appendicitis. BLADDER: Unremarkable. REPRODUCTIVE: Unremarkable as visualized. No mass. ABDOMEN and PELVIS: INTRAPERITONEAL SPACE: Unremarkable. No ascites or other fluid collection. No free air. BONES/JOINTS: Unremarkable. No suspicious lytic or blastic abnormality. SOFT TISSUES: Unremarkable. No discrete abdominal or pelvic wall hernia. VASCULATURE: Unremarkable. Abdominal aorta is non-dilated. LYMPH NODES: Unremarkable. No enlarged lymph nodes. CT/Abdomen/Pelvis W IV Cont ONLY IMPRESSION: Fluid filled loops of large and small bowel which may represent mild enteritis with incipient diarrhea. No other acute abnormalities identified. Electronically Signed: Andrés Cummings MD at 22:21 EST ,
[2022-08-29 21:59] LABS: AST(SGOT) 26 U/L (15-37); Alanine Aminotransfer ALT/SGPT 44 U/L (16-61); Albumin, Serum 4.4 g/dL (3.2-5.0); Alkaline Phosphatase 49 U/L (45-117); Anion Gap 8 (5-15); BUN 12 mg/dL (7-18); BUN/Creat Ratio 11.9 RATIO (10-20); Bilirubin, Direct 0.09 mg/dL (0.00-0.30); Calcium,Total 9.7 mg/dL (8.5-10.1); Chloride 109 mmol/L (98-107); Creatinine, Serum 1.01 mg/dL (0.70-1.30); EST Glomerular Filtration Rate 88 mL/min (>60); Est Glom Filt Rate - Afr Amer 106 mL/min (>60); Estimated Creatinine Clearance 95.94 ml/min; Globulin 3.4 g/dL (2.2-4.2); Glucose 113 mg/dL (74-106); Lipase 169 U/L (73-393); Potassium 3.8 mmol/L (3.5-5.1); Protein, Total 7.8 g/dL (6.4-8.2); Sodium Level 140 mmol/L (136-145)
[2022-08-29 23:25] VITALS: BP 136/89; PULSE 95; RESP 19; O2SAT 100
== END 2022-08-29 23:26 | disposition home or self-care (01) ==
PROVIDERS: Emergency Provider Emergency Medicine; PCP Family Medicine; Visit Provider Emergency Medicine
DX: K52.9 Noninfective gastroenteritis and colitis, unspecified (principal); F12.90 Cannabis use, unspecified, uncomplicated; R10.816 Epigastric abdominal tenderness; F17.210 Nicotine dependence, cigarettes, uncomplicated; R10.13 Epigastric pain; D72.829 Elevated white blood cell count, unspecified
CPT/HCPCS: 36415; 74177; 80048; 80076; 83690; 85025; 96361; 96374; 96375; 96376; 99282; J7030; Q9967; A4216; J2405; J3490

== ENCOUNTER 2022-09-01 10:21 | Emergency (ER) | payer MEDICAID, SELFPAY ==
[2022-09-01 10:21] VITALS: BP 147/88; PULSE 62; RESP 24; TEMP 35.7; O2SAT 100; BMI 30.4
[2022-09-01] MEDS: Mag Hydrox/Al Hydrox/Simeth 30 ML UDC PO (11:12)
[2022-09-01] MEDS: Ondansetron 4 MG/2 ML Vial IV (11:18)
[2022-09-01] MEDS: Morphine 4 MG/ML Syringe IV (11:18)
[2022-09-01] MEDS: 0.9% Normal Saline 1,000 ML 1000 ML IV (11:24)
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
[2022-09-01 11:32] LABS: Absolute Lymphocyte Count 1.62 X10^3/uL (0.83-4.51); Absolute Neutrophil Count 5.3 X10^3/uL (2.0-7.7); Basophil# 0.02 X10^3/uL; Basophil% 0.3 % (0-1); Eosinophil# 0.01 X10^3/uL; Eosinophils% 0.1 % (0-5); Hematocrit 50.2 % (40-54); Hemoglobin 16.7 g/dL (13.0-16.5); Lymphocyte # 1.62 X10^3/ul (0.83-4.51); Lymphocyte % 21.6 % (19-41); Mean Corp Hgb Conc 33.3 g/dL (32-36); Mean Corpuscular Hgb 27.6 pg (27.0-32.0); Mean Corpuscular Volume 83.1 fL (80-94); Monocyte# 0.54 X10^3/uL; Monocyte% 7.2 % (0-10); NRBC Flagged by Analyzer 0 % (0-5); Neutrophil # 5.28 X10^3/uL (2.7-7.7); Neutrophil % 70.3 % (47-70); Platelet Count 295 K/mm3 (150-450); RBC Distribution Width CV 14.7 % (11.6-14.6); RBC Distribution Width SD 43.8 fl (35.1-43.9); Red Blood Count 6.04 M/mm3 (4.6-6.2); White Blood Count 7.5 K/mm3 (4.4-11.0)
[2022-09-01 11:56] LABS: ALB/GLOB Ratio 1.2 RATIO (0.9-2.4); AST(SGOT) 31 U/L (15-37); Alanine Aminotransfer ALT/SGPT 45 U/L (16-61); Albumin, Serum 4.8 g/dL (3.2-5.0); Alkaline Phosphatase 56 U/L (45-117); Anion Gap 10 (5-15); BUN 12 mg/dL (7-18); BUN/Creat Ratio 10.4 RATIO (10-20); Calcium,Total 10.3 mg/dL (8.5-10.1); Chloride 108 mmol/L (98-107); Creatinine, Serum 1.15 mg/dL (0.70-1.30); EST Glomerular Filtration Rate 76 mL/min (>60); Est Glom Filt Rate - Afr Amer 91 mL/min (>60); Estimated Creatinine Clearance 84.26 ml/min; Globulin 4.1 g/dL (2.2-4.2); Glucose 109 mg/dL (74-106); Lipase 173 U/L (73-393); Potassium 3.9 mmol/L (3.5-5.1); Protein, Total 8.9 g/dL (6.4-8.2); Sodium Level 140 mmol/L (136-145)
[2022-09-01] MEDS: proMETHazine 25 MG/ML Syringe 12.5 MG IM (13:37)
[2022-09-01 14:32] VITALS: BP 138/68; PULSE 90; RESP 16; O2SAT 99
== END 2022-09-01 14:38 | disposition home or self-care (01) ==
PROVIDERS: Emergency Provider Student in an Organized Health Care Education/Training Program; PCP Family Medicine; Visit Provider Student in an Organized Health Care Education/Training Program
DX: K29.70 Gastritis, unspecified, without bleeding (principal); F12.90 Cannabis use, unspecified, uncomplicated; F17.210 Nicotine dependence, cigarettes, uncomplicated; F43.10 Post-traumatic stress disorder, unspecified
CPT/HCPCS: 80053; 83690; 85025; 96361; 96372; 96374; 96375; 99283; J7030; J2405

== ENCOUNTER 2022-09-06 09:26 | Emergency (ER) | payer MEDICAID, SELFPAY ==
[2022-09-06 09:27] VITALS: BP 158/114; PULSE 73; RESP 18; TEMP 36.6; O2SAT 100; BMI 26.9
--- NOTE | 2022-09-06 09:47 | ED.VIS.GI ---
HPI HPI - GI History of Present Illness Chief Complaint: Abd Pain Narrative Narrative: 37-year-old male with history of pancreatitis, gastritis, multiple visits for epigastric pain presenting with epigastric pain. He states that yesterday he was doing fine and over the course of the evening he started to feel nauseous and sick. He started throwing up this morning. Has not been able to hold down any food since then. Denies fevers or chills. He states he tried a hot shower which helped a little bit. He states he stepped on a peppermint which also helped a little bit. Denies any abdominal trauma. Denies drinking alcohol. He states he has not had marijuana in 5 days. [facility] Medical History ETOH abuse PTSD (post-traumatic stress disorder) Home Medications pantoprazole 40 mg tablet,delayed release (Protonix) 40 mg PO BID #60 tabs 11/23/21 [Rx Last Taken Unknown] amitriptyline 25 mg tablet 25 mg PO QHS #90 tabs 04/06/22 [Rx Last Taken Unknown] dicyclomine 20 mg tablet 20 mg PO TID abdominal cramping #10 tabs 08/29/22 [Rx Last Taken Unknown] ondansetron 4 mg disintegrating tablet 4 mg PO Q8H PRN PRN Nausea #10 tabs 08/29/22 [Rx Last Taken Unknown] promethazine 25 mg tablet 25 mg PO TID PRN nausea and vomiting #20 tabs 09/01/22 [Rx Last Taken Unknown] Allergy/AdvReac Type Severity Reaction Status Date / Time No Known Allergies Allergy Verified 09/06/22 09:30 Family History Mother Diabetes Father , when patient was 5 years old, traumatic accident. No problems noted. Social History Smoking Status: Current every day smoker tobacco type: cigarettes alcohol intake: current alcohol intake frequency: a few times a week substance use type: marijuana ROS ROS ED Constitutional Constitutional ED: Denies chills, fever(s) or sweats Eyes Eyes: Denies blurry vision or change in vision ENT ENT ED: Denies ear pain or sore throat Cardiovascular Cardiovascular: Denies chest pain, palpitations or racing heartbeat Respiratory/Chest Respiratory/Chest: Denies cough, dyspnea or sputum Gastrointestinal Gastrointestinal: Reports abdominal pain, nausea and vomiting; Denies constipation or diarrhea Genitourinary Genitourinary ED: Denies dysuria, hematuria or urinary frequency Musculoskeletal Musculoskeletal: Denies arthralgias, myalgias or neck pain Integumentary Denies abscess, Abrasions or rash Neurologic Neurologic: Denies headache(s), paresthesias or weakness Psychiatric Psychiatric: Denies anxiety, depression, suicidal ideation or suicidal thoughts Endocrine Endocrinology: Denies polydipsia or polyuria EXAM Physical Exam Const Vital Signs: 09/06/22 09:27 09/06/22 11:19 Temperature 97.9 F Temperature Source Temporal Pulse Rate 73 61 Respiratory Rate 18 18 Blood Pressure 158/114 H 129/84 H Blood Pressure Mean 128 99 Pulse Ox 100 100 Oxygen Delivery Method Room Air Room Air Positive well nourished General Appearance ED: NAD; Negative for pallor HEENT Reports dry mucous membranes normocephalic and atraumatic Mouth ED: Yes dry mucous membranes Mouth: dry mucous membranes Eyes PERRL General Eye ED: Negative for pale conjunctiva or scleral icterus Neck no lymphadenopathy Cardio regular rate and regular rhythm GI Palpation: tender epigastric Back/Spine no CVA tenderness Psych mental status grossly normal Skin no wounds General Skin Exam: Negative for jaundice or pallor MDM MDM MDM Narrative Medical decision making narrative: CBC shows a white blood cell count, hemoglobin, platelets, differential. CMP to assess liver function, renal function, electrolytes. Lipase to assess for pancreatitis. Patient medicated with chlorpromazine, Benadryl, Pepcid, Ativan, Zofran. On reevaluation at 135 he is doing well. He has not vomited. He was able to get up and walk to the restroom. We will attempt a p.o. challenge at this time. I do not believe he needs a CT scan. Patient p.o. challenged and well. I think he can be discharged home. He is already on Zofran, Phenergan, Protonix, dicyclomine, amitriptyline at home. He is to follow-up with Dr. Richardson. Return precautions discussed. Impression: 1. Nausea/vomiting 2. Abdominal pain Lab Data Attestation: I reviewed the patient's lab results. Labs: Laboratory Results - last 24 hr 09/06/22 09/06/22 09/06/22 10:13 10:13 10:45 WBC Cancelled 6.2 Corrected WBC Cancelled RBC Cancelled 5.39 Hgb Cancelled 14.8 Hct Cancelled 44.9 MCV Cancelled 83.3 MCH Cancelled 27.5 MCHC Cancelled 33.0 RDW Std Deviation Cancelled 41.9 RDW Coeff of Hari Cancelled 13.9 Plt Count Cancelled 270 MPV Cancelled 10.0 Immature Gran % (Auto) Cancelled 0.500 Neut % (Auto) Cancelled 54.0 Lymph % (Auto) Cancelled 33.9 [place] % (Auto) Cancelled 10.6 H Eos % (Auto) Cancelled 0.2 Baso % (Auto) Cancelled 0.8 Absolute Neuts (auto) Cancelled 3.4 Absolute Lymphs (auto) Cancelled 2.10 Total Counted Cancelled Neutrophils % (Manual) Cancelled Band Neutrophils % Cancelled Lymphocytes % (Manual) Cancelled Monocytes % (Manual) Cancelled Eosinophils % (Manual) Cancelled Basophils % (Manual) Cancelled Metamyelocytes % Cancelled Myelocytes % Cancelled Promyelocytes % Cancelled Blast Cells % Cancelled Plasma Cell % (Manual) Cancelled Other Cells % Cancelled Nucleated RBC % Cancelled 0 Nucleated RBCs/100 WBC Cancelled Differential Comment Cancelled Diff Path Review Cancelled Hypersegmented Neuts Cancelled Atypical Lymphocytes Cancelled Reactive Lymphocytes Cancelled Smudge Cells Cancelled Toxic Granulation Cancelled Toxic Vacuolation Cancelled Dohle Bodies Cancelled Grabiel Rods Cancelled Platelet Estimate Cancelled Plt Morphology Comment Cancelled RBC Morphology Cancelled Polychromasia Cancelled Hypochromasia Cancelled Poikilocytosis Cancelled Basophilic Stippling Cancelled Anisocytosis Cancelled Microcytosis Cancelled Macrocytosis Cancelled Spherocytes Cancelled Sickle Cells Cancelled Target Cells Cancelled Tear Drop Cells Cancelled Ovalocytes Cancelled Stomatocytes Cancelled [place] Bodies Cancelled [place] Cells Cancelled Bite Cells Cancelled Crenated Cell Cancelled Acanthocytes (Spur) Cancelled Rouleaux Cancelled Schistocytes Cancelled Sodium 136 Potassium 3.9 Chloride 108 H Carbon Dioxide 18.0 L Anion Gap 10 BUN 16 Creatinine 1.19 Estim Creat Clear Calc 86.90 Est GFR (MDRD) Af Amer 88 Est GFR (MDRD) Non-Af 73 BUN/Creatinine Ratio 13.4 Glucose 112 H Calcium 9.9 Total Bilirubin 0.90 AST 27 ALT 34 Alkaline Phosphatase 47 Total Protein 7.8 Albumin 4.1 Globulin 3.7 Albumin/Globulin Ratio 1.1 Lipase 134 Discharge Plan Triage Chief Complaint: Abd Pain ED Provider: Red Rollins Dx/Rx/DC Orders Instructions: ED Abdominal Pain Unkn Cause Male... Prescriptions: No Action pantoprazole [Protonix] 40 mg tablet,delayed release (DR/EC) 40 mg PO BID Qty: 60 1RF amitriptyline 25 mg tablet 25 mg PO QHS Qty: 90 1RF ondansetron [ondansetron] 4 mg tablet,disintegrating 4 mg PO Q8H PRN PRN (Reason: Nausea) Qty: 10 0RF dicyclomine 20 mg tablet 20 mg PO TID Qty: 10 0RF promethazine 25 mg tablet 25 mg PO TID PRN (Reason: nausea and vomiting) Qty: 20 0RF Primary Care Provider: Denny Benton Referrals: Denny Benton MD [Primary Care Provider] - Disposition Disposition: Home, Self Care
[2022-09-06] MEDS: LORazepam 2 MG/ML Syringe 0.5 MG IV (10:09)
[2022-09-06] MEDS: Ondansetron 4 MG/2 ML Vial IV (10:09)
[2022-09-06] MEDS: Famotidine 200 MG/20 ML MDV 20 MG in 0.9% Normal Saline (Pres. free 8 ML 300 MG IV (10:10)
[2022-09-06 10:52] LABS: Absolute Neutrophil Count 3.4 X10^3/uL (2.0-7.7); Basophil# 0.05 X10^3/uL; Basophil% 0.8 % (0-1); Eosinophil# 0.01 X10^3/uL; Eosinophils% 0.2 % (0-5); Hematocrit 44.9 % (40-54); Hemoglobin 14.8 g/dL (13.0-16.5); Lymphocyte % 33.9 % (19-41); Mean Corpuscular Hgb 27.5 pg (27.0-32.0); Mean Corpuscular Volume 83.3 fL (80-94); Monocyte# 0.66 X10^3/uL; Monocyte% 10.6 % (0-10); NRBC Flagged by Analyzer 0 % (0-5); Neutrophil # 3.35 X10^3/uL (2.7-7.7); Platelet Count 270 K/mm3 (150-450); RBC Distribution Width CV 13.9 % (11.6-14.6); RBC Distribution Width SD 41.9 fl (35.1-43.9); Red Blood Count 5.39 M/mm3 (4.6-6.2); White Blood Count 6.2 K/mm3 (4.4-11.0)
[2022-09-06 11:05] LABS: ALB/GLOB Ratio 1.1 RATIO (0.9-2.4); AST(SGOT) 27 U/L (15-37); Alanine Aminotransfer ALT/SGPT 34 U/L (16-61); Albumin, Serum 4.1 g/dL (3.2-5.0); Alkaline Phosphatase 47 U/L (45-117); Anion Gap 10 (5-15); BUN 16 mg/dL (7-18); BUN/Creat Ratio 13.4 RATIO (10-20); Calcium,Total 9.9 mg/dL (8.5-10.1); Chloride 108 mmol/L (98-107); Creatinine, Serum 1.19 mg/dL (0.70-1.30); EST Glomerular Filtration Rate 73 mL/min (>60); Est Glom Filt Rate - Afr Amer 88 mL/min (>60); Globulin 3.7 g/dL (2.2-4.2); Glucose 112 mg/dL (74-106); Lipase 134 U/L (73-393); Potassium 3.9 mmol/L (3.5-5.1); Protein, Total 7.8 g/dL (6.4-8.2); Sodium Level 136 mmol/L (136-145)
[2022-09-06 11:19] VITALS: BP 129/84; PULSE 61; RESP 18; O2SAT 100
[2022-09-06 14:07] VITALS: BP 143/75; PULSE 78; RESP 16; O2SAT 96
== END 2022-09-06 14:08 | disposition home or self-care (01) ==
PROVIDERS: Emergency Provider Student in an Organized Health Care Education/Training Program; PCP Family Medicine; Visit Provider Student in an Organized Health Care Education/Training Program
DX: R11.2 Nausea with vomiting, unspecified (principal); F12.90 Cannabis use, unspecified, uncomplicated; R10.9 Unspecified abdominal pain; F17.210 Nicotine dependence, cigarettes, uncomplicated
CPT/HCPCS: 80053; 83690; 85025; 99283; J7050; A4216; J2405; J3490

== ENCOUNTER 2024-11-18 06:06 | Emergency (ER) | payer SELFPAY ==
[2024-11-18 06:07] VITALS: BP 128/71; PULSE 77; RESP 22; TEMP 36.6; O2SAT 100; BMI 27.3
[2024-11-18] MEDS: Famotidine 200 MG/20 ML MDV 20 MG in 0.9% Normal Saline (Pres. free 8 ML 300 MG IV (06:36)
[2024-11-18] MEDS: 0.9% Normal Saline (1000mL) 1,000 ML 999 ML IV (06:36)
[2024-11-18] MEDS: Ondansetron 4 MG/2 ML Vial IV (06:37)
[2024-11-18] MEDS: Capsaicin 0.025% 1 APPLIC Tube TOPICAL (06:37)
[2024-11-18 06:41] LABS: Absolute Lymphocyte Count 4.88 X10^3/uL (0.83-4.51); Absolute Neutrophil Count 3.7 X10^3/uL (2.0-7.7); Basophil# 0.07 X10^3/uL; Basophil% 0.7 % (0-1); Eosinophil# 0.09 X10^3/uL; Eosinophils% 0.9 % (0-5); Hematocrit 47.7 % (40-54); Hemoglobin 16.2 g/dL (13.0-16.5); Lymphocyte # 4.88 X10^3/ul (0.83-4.51); Lymphocyte % 49.6 % (19-41); Mean Corpuscular Hgb 27.6 pg (27.0-32.0); Mean Corpuscular Volume 81.3 fL (80-94); Mean Platelet Vol. 11.1 fl (6.2-12.0); Monocyte# 1.11 X10^3/uL; Monocyte% 11.3 % (0-10); NRBC Flagged by Analyzer 0 % (0-5); Neutrophil # 3.65 X10^3/uL (2.7-7.7); Neutrophil % 37.2 % (47-70); Platelet Count 275 K/mm3 (150-450); RBC Distribution Width CV 14.6 % (11.6-14.6); Red Blood Count 5.87 M/mm3 (4.6-6.2); White Blood Count 9.8 K/mm3 (4.4-11.0)
[2024-11-18 06:54] LABS: Lipase 75 U/L (13-75)
[2024-11-18 06:57] LABS: AST(SGOT) 30 U/L (<=37); Alanine Aminotransfer ALT/SGPT 27 U/L (<=46); Albumin, Serum 4.7 g/dL (3.5-5.0); Alkaline Phosphatase 53 U/L (40-129); Anion Gap 16 (5-15); BUN 19 mg/dL (4-19); BUN/Creat Ratio 13.7 RATIO (10-20); Bilirubin, Direct 0.11 mg/dL (0.00-0.30); Calcium,Total 10.1 mg/dL (7.6-11.0); Carbon Dioxide 23.3 mmol/L (21.0-32.0); Chloride 99 mmol/L (98-108); Creatinine, Serum 1.37 mg/dL (0.70-1.20); EST Glomerular Filtration Rate 67 (>60); Estimated Creatinine Clearance 74.01 ml/min (50-250); Glucose 114 mg/dL (70-99); Potassium 3.6 mmol/L (3.3-5.1); Protein, Total 7.7 g/dL (5.9-8.4); Sodium Level 138 mmol/L (133-145); Total Bilirubin 0.38 mg/dL (0.00-1.30)
--- NOTE | 2024-11-18 07:01 | EDS_ITS ---
HPI <Dr. Yunior Hassan DO - Last Filed: 11/19/24 11:25> HPI - GI History of Present Illness Chief Complaint: Abd Pain Informant: patient and spouse/S.O. Narrative Narrative: Vomiting since Sunday throughout the day into Sunday. No hematemesis. Yesterday ate fried chicken vomiting started again. No diarrhea. Last bowel movement 3 to 4 days ago positive flatus. No abdominal surgeries. He has had upper endoscopy with Dr. Richardson in 2022. He said issues with epigastric pain. He has had pancreatitis before. He admits to daily marijuana use. He has not been told of any cannabis hyperemesis syndrome. He has been doing hot showers and baths. No urinary symptoms. No fever chills or sweats. Prior similar symptoms: Yes PFSH <Dr. Yunior Hassan DO - Last Filed: 11/19/24 11:25> [facility] Medical History Marijuana smoker ETOH abuse PTSD (post-traumatic stress disorder) Home Medications ?Medication ?Instructions ?Recorded ?Last Taken ?Type ondansetron 4 mg disintegrating 4 mg PO Q8H PRN PRN Na usea #10 tabs 11/18/24 Unknown Rx tablet pantoprazole 40 mg tablet,delayed 40 mg PO DAILY #30 t abs 11/18/24 Unknown Rx release Allergy/AdvReac Type Severity Reaction Status Date / Time No Known Allergies Allergy Verified 11/18/24 06:07 Family History Mother Diabetes Father , when patient was 5 years old, traumatic accident. No problems noted. Social History Smoking Status: Current every day smoker tobacco type: cigarettes alcohol intake: current alcohol intake frequency: a few times a week substance use type: marijuana ROS <Dr. Yunior Hassan DO - Last Filed: 11/19/24 11:25> ROS ED Constitutional Constitutional ED: Denies chills, fever(s) or sweats ENT ENT ED: Denies sore throat Cardiovascular Cardiovascular: Denies chest pain, leg edema, palpitations or racing heartbeat Respiratory/Chest Respiratory/Chest: Denies cough, dyspnea or dyspnea on exertion Gastrointestinal Gastrointestinal: Reports nausea and vomiting; Denies abdominal pain or diarrhea Genitourinary Genitourinary ED: Denies dysuria, hematuria or urinary frequency Musculoskeletal Musculoskeletal: Denies back pain, extremity pain or neck pain Integumentary Denies rash or wounds Neurologic Neurologic: Denies headache(s), paresthesias or weakness EXAM <Dr. Yunior Hassan, DO - Last Filed: 11/19/24 11:25> Physical Exam Const Vital Signs: 11/18/24 06:07 11/18/24 08:07 Temperature 97.8 F Temperature Source Temporal Pulse Rate 77 67 Respiratory Rate 22 H 18 Blood Pressure 128/71 H Blood Pressure Mean 90 Pulse Ox 100 96 Oxygen Delivery Method Room Air Room Air Positive well nourished and well developed General Appearance ED: well developed and NAD HEENT Reports moist mucous membranes normocephalic and atraumatic Eyes General Eye ED: Yes normal appearance of both eyes Neck full ROM Chest Wall Chest: Negative for tenderness Resp normal respiratory effort and normal air movement Effort and Inspection: symmetric chest movement; Negative for respiratory distress Cardio regular rate, regular rhythm and no murmurs Peripheral Pulses: pulses 2+ throughout GI normal to inspection, nondistended, normoactive bowel sounds and non-tender Palpation: Negative for guarding or rebound tenderness present Extremity normal to inspection General Extremety ED: Negative for edema or tenderness General Extremity: Negative for edema Neuro oriented x3 and no sensory deficits noted Sensorium / Orientation: awake and alert Skin no rashes or lesions noted and no wounds <Dr. Chapo Melton, DO - Last Filed: 11/18/24 08:25> Physical Exam Const Vital Signs: 11/18/24 06:07 11/18/24 08:07 Temperature 97.8 F Temperature Source Temporal Pulse Rate 77 67 Respiratory Rate 22 H 18 Blood Pressure 128/71 H Blood Pressure Mean 90 Pulse Ox 100 96 Oxygen Delivery Method Room Air Room Air MDM <Dr. Yunior Hassan, DO - Last Filed: 11/19/24 11:25> MDM MDM Narrative Medical decision making narrative: Interventions / MDM: Differential diagnosis: Cyclic vomiting, cannabis hyperemesis syndrome, dehydration, electrolyte abnormalities Diagnosis considered but do not suspect: Pancreatitis however lipase normal. No surgical abdomen exam. My EKG interpretation: N/A Imaging independently reviewed and interpreted by myself: N/A External documents reviewed: EGD from September 2021 noted chronic gastritis and duodenitis. Test considered but not ordered:N/A ED course: Patient admits to daily marijuana use. Vomiting for 2 days, nonsurgical abdomen. Will check abdominal labs. Fluids ordered Zofran Pepcid and capsaicin for which she agreed. 0700: Labs normal. Lipase 75. White count 9.8. Per nursing capsaicin was too hot therefore it was wiped down. He is clinically was feeling better still slightly nauseated he would like to try additional medications. IV Haldol was ordered. Will reevaluate, will plan for p.o. challenge. 0730: Patient will be signed out to oncoming physician. Re-evaluation: stable Disposition discussed with patient/family/significant other: Patient and significant other Case discussed with consulting clinician: N/A This note was generated with [employer] dictation software. It may contain incorrect words, spelling, and punctuation that were not noted in checking the note before signing. Lab Data Attestation: I reviewed the patient's lab results. Labs: Laboratory Results - last 24 hr 11/18/24 06:16 WBC 9.8 RBC 5.87 Hgb 16.2 Hct 47.7 MCV 81.3 MCH 27.6 MCHC 34.0 RDW Std Deviation 43.0 RDW Coeff of Hari 14.6 Plt Count 275 MPV 11.1 Immature Gran % (Auto) 0.300 Neut % (Auto) 37.2 L Lymph % (Auto) 49.6 H Glades % (Auto) 11.3 H Eos % (Auto) 0.9 Baso % (Auto) 0.7 Absolute Neuts (auto) 3.7 Absolute Lymphs (auto) 4.88 H Nucleated RBC % 0 Sodium 138 Potassium 3.6 Chloride 99 Carbon Dioxide 23.3 Anion Gap 16 H BUN 19 Creatinine 1.37 H Estim Creat Clear Calc 74.01 Est GFR (MDRD) Non-Af 67 BUN/Creatinine Ratio 13.7 Glucose 114 H Calcium 10.1 Total Bilirubin 0.38 Direct Bilirubin 0.11 AST 30 ALT 27 Alkaline Phosphatase 53 Total Protein 7.7 Albumin 4.7 Globulin 3.0 Lipase 75 <Dr. Chapo Melton, DO - Last Filed: 11/18/24 08:25> MDM MDM Narrative Medical decision making narrative: Interventions / MDM: Differential diagnosis: Cyclic vomiting, cannabis hyperemesis syndrome, dehydration, electrolyte abnormalities Diagnosis considered but do not suspect: Pancreatitis however lipase normal. No surgical abdomen exam. My EKG interpretation: N/A Imaging independently reviewed and interpreted by myself: N/A External documents reviewed: EGD from September 2021 noted chronic gastritis and duodenitis. Test considered but not ordered:N/A ED course: Patient admits to daily marijuana use. Vomiting for 2 days, nonsurgical abdomen. Will check abdominal labs. Fluids ordered Zofran Pepcid and capsaicin for which she agreed. 0700: Labs normal. Lipase 75. White count 9.8. Per nursing capsaicin was too hot therefore it was wiped down. He is clinically was feeling better still slightly nauseated he would like to try additional medications. IV Haldol was ordered. Will reevaluate, will plan for p.o. challenge. 0730: Patient will be signed out to oncoming physician. Re-evaluation: stable Disposition discussed with patient/family/significant other: Patient and si gnificant other Case discussed with consulting clinician: N/A This note was generated with [employer] dictation software. It may contain incorrect words, spelling, and punctuation that were not noted in checking the note before signing. Patient was turned over to me by Dr. [email or web address] Brief history: 39-year-old male presents with history as above. Physical exam: Benign abdomen Labs and images reviewed (if obtained): CBC with no leukocytosis, no anemia, no thrombocytopenia BMP without significant electrolyte abnormalities, there is slight elevation anion gap, no evidence of metabolic acidosis, no STEFANIA Lipase is wnl indicating no pancreatic inflammation. Patient received capsaicin, Pepcid, Zofran, fluids and then Haldol. Noted improvement in nausea vomiting. Able to tolerate p.o here in the emergency department. Repeat abdominal exam remained benign. Low suspicion for acute surgical pathology abdomen pelvis. No indication for imaging at this time. Likely family hyperemesis syndrome. Will give Zofran, Pepcid home-going treatment instructions. Will give GI follow-up MDM/plan: Discharge home Lab Data Labs: Laboratory Results - last 24 hr 11/18/24 06:16 WBC 9.8 RBC 5.87 Hgb 16.2 Hct 47.7 MCV 81.3 MCH 27.6 MCHC 34.0 RDW Std Deviation 43.0 RDW Coeff of Hari 14.6 Plt Count 275 MPV 11.1 Immature Gran % (Auto) 0.300 Neut % (Auto) 37.2 L Lymph % (Auto) 49.6 H Glades % (Auto) 11.3 H Eos % (Auto) 0.9 Baso % (Auto) 0.7 Absolute Neuts (auto) 3.7 Absolute Lymphs (auto) 4.88 H Nucleated RBC % 0 Sodium 138 Potassium 3.6 Chloride 99 Carbon Dioxide 23.3 Anion Gap 16 H BUN 19 Creatinine 1.37 H Estim Creat Clear Calc 74.01 Est GFR (MDRD) Non-Af 67 BUN/Creatinine Ratio 13.7 Glucose 114 H Calcium 10.1 Total Bilirubin 0.38 Direct Bilirubin 0.11 AST 30 ALT 27 Alkaline Phosphatase 53 Total Protein 7.7 Albumin 4.7 Globulin 3.0 Lipase 75 Discharge Plan Triage Chief Complaint: Abd Pain ED Provider: Yunior Hassan Dx/Rx/DC Orders Clinical Impression: Gastritis, Cannabis abuse, Cyclic vomiting syndrome Instructions: Cannabis Hyperemesis Syndrome Prescriptions: New pantoprazole 40 mg tablet,delayed release (DR/EC) 40 mg PO DAILY Qty: 30 0RF ondansetron 4 mg tablet,disintegrating 4 mg PO Q8H PRN PRN (Reason: Nausea) Qty: 10 0RF Stand Alone Forms: ED Work / School Excuse Primary Care Provider: Denny Benton Referrals: Denny Benton MD [Primary Care Provider] - FriendGamaliel DO [Med Staff - Active Staff] - 1-2 Weeks Activity Restrictions/Additional Instructions: Labs were normal, lipase normal. No signs of pancreatitis. Avoid marijuana use as this can aggravate your symptoms. You had previous gastritis on your scope. Take pantoprazole daily. Use Zofran as needed. Continue oral fluids for hydration. Print Language: Amharic Disposition Disposition: Home, Self Care Discharge Date/Time: 11/18/24 08:48
[2024-11-18] MEDS: Haloperidol Lactate 5 MG/ML Vial 2 MG IV (07:31)
[2024-11-18 08:07] VITALS: PULSE 67; RESP 18; O2SAT 96
[2024-11-18 08:44] VITALS: BP 143/95; PULSE 67; RESP 18; O2SAT 96
== END 2024-11-18 08:48 | disposition home or self-care (01) ==
PROVIDERS: Emergency Provider Emergency Medicine; PCP Family Medicine; Visit Provider Emergency Medicine
DX: K29.50 Unspecified chronic gastritis without bleeding (principal); F12.10 Cannabis abuse, uncomplicated; F17.210 Nicotine dependence, cigarettes, uncomplicated; Z79.899 Other long term (current) drug therapy; R11.15 Cyclical vomiting syndrome unrelated to migraine
CPT/HCPCS: 80048; 80076; 83690; 85025; 96361; 96374; 96375; 99285; A4216; J2405

== ENCOUNTER 2024-11-22 08:09 | Emergency (ER) | payer SELFPAY ==
[2024-11-22 08:10] VITALS: BP 154/91; PULSE 71; RESP 18; TEMP 37.2; O2SAT 100; BMI 26.8
--- NOTE | 2024-11-22 08:33 | US_ITS ---
EXAM: US Abdomen Limited, Right Upper Quadrant CLINICAL INDICATION: PAIN UPPER ABD, N/V TECHNIQUE: Real-time ultrasound of the right upper quadrant with image documentation. COMPARISON: No relevant prior studies available. FINDINGS: LIVER: Liver measures up to 18.7 cm. No intrahepatic bile duct dilation. GALLBLADDER: Unremarkable. No gallstones. COMMON BILE DUCT: Unremarkable as visualized. No stones. No dilation. Common bile duct measures 0.4 cm in diameter. PANCREAS: Unremarkable as visualized. RIGHT KIDNEY: Unremarkable. No stones. No hydronephrosis. The right kidney measures 10.9 x 5.5 x 4.9 cm. US/Abdomen Limited IMPRESSION: No acute findings in the right upper quadrant. Reading Location: [id number]
--- NOTE | 2024-11-22 08:34 | ED.VIS.GI ---
HPI HPI - GI History of Present Illness Chief Complaint: Nausea/Vomiting Informant: patient and spouse/S.O. Narrative Narrative: 39-year-old male was at a bar about a week ago drinking and he woke up the next morning vomiting and has not been able to stop for the past week. He was seen here once in that period time. He is not getting better. Anytime he tries to eat, within 20 or 30 minutes he is vomiting and has intense upper abdominal pain. Significant other seems to think that when he does not eat all of this quiets down and he acts more normal but he is very uncomfortable right now. He has been eating very little for the past week and as a result has not been having any bowel movements, but states that he was eating heavy greasy food on the first day or 2. He has never had any abdominal surgeries, but he did have endoscopy the. At 1 point he was diagnosed with possibility of cyclic vomiting syndrome related to cannabis but the patient states he has not had any cannabis since this started and he has not had any more alcohol. The pain does not go into his back. [facility] Medical History Marijuana smoker ETOH abuse PTSD (post-traumatic stress disorder) Home Medications ?Medication ?Instructions ?Recorded ?Last Taken ?Type pantoprazole 40 mg tablet,delayed 40 mg PO DAILY #30 tabs 11/18/24 11/21/24 Rx release dicyclomine 20 mg tablet 20 mg PO Q6H PRN PRN abdominal 11/22/24 Unknown Rx discomfort #20 tabs ondansetron 8 mg disintegrating 8 mg PO Q8H PRN nausea and 11/22/24 Unknown Rx tablet vomiting #20 tabs sucralfate 1 gram tablet (Carafate) 1 g PO TID 1 week #21 tabs 11/22/24 Unknown Rx Allergy/AdvReac Type Severity Reaction Status Date / Time No Known Allergies Allergy Verified 11/22/24 08:10 Family History Mother Diabetes Father , when patient was 5 years old, traumatic accident. No problems noted. Social History Smoking Status: Current every day smoker tobacco type: cigarettes alcohol intake: current alcohol intake frequency: a few times a week substance use type: marijuana ROS ROS ED Constitutional Constitutional ED: Denies chills or fever(s) Eyes Eyes: Denies change in vision or diplopia ENT ENT ED: Denies rhinorrhea or sore throat Cardiovascular Cardiovascular: Denies chest pain or palpitations Respiratory/Chest Respiratory/Chest: Denies cough or dyspnea Gastrointestinal Gastrointestinal: Reports abdominal pain, nausea and vomiting; Denies diarrhea, hematemesis, hematochezia or melena Genitourinary Genitourinary ED: Denies dysuria or hematuria Musculoskeletal Musculoskeletal: Denies back pain or neck pain Integumentary Denies abscess or rash Neurologic Neurologic: Denies headache(s), paresthesias or weakness Psychiatric Psychiatric: Denies suicidal thoughts EXAM Physical Exam Const Vital Signs: 11/22/24 08:10 Temperature 98.9 F Temperature Source Oral Pulse Rate 71 Respiratory Rate 18 Blood Pressure 154/91 H Blood Pressure Mean 112 Pulse Ox 100 Oxygen Delivery Method Room Air Positive well nourished and well developed General Appearance ED: well developed and NAD HEENT Reports moist mucous membranes normocephalic and atraumatic Eyes PERRL and EOMs intact bilaterally Neck full ROM and supple Resp normal respiratory effort and clear to auscultation bilaterally Cardio regular rate, regular rhythm and no murmurs GI non-distended GI Narrative: Tender throughout upper abdomen, epigastrium is worst. No guarding or rebound. Negative Loya. Auscultation: normoactive bowel sounds Palpation: soft Back/Spine no CVA tenderness General Back: other FROM Extremity normal to inspection General Extremety ED: Negative for edema, pulses abnormal or tenderness General Extremity: Negative for edema or pulses abnormal Neuro oriented x3, CN's II-XII intact bilaterally and no sensory deficits noted Sensorium / Orientation: awake and alert Motor Exam: strength 5/5 throughout Psych Mood & Affect: anxious Skin no rashes or lesions noted and no wounds MDM MDM MDM Narrative Medical decision making narrative: Labs show a barely elevated lipase at 83 with a high limit of normal being 75, otherwise his labs are normal he has no leukocytosis his urine is negative, and I reviewed the imaging and results of right upper quadrant ultrasound, which is negative/normal and I agree with that. Patient is doing much better after IV fluids, morphine, Reglan, Zofran. He has never had pancreatitis before, he is not a heavy daily drinker, just on occasion but he did drink heavily that day 1 week ago after which this started. Therefore I am sending him for a CT of the abdomen/pelvis with IV contrast to evaluate for possible pancreatitis radiographically. I reviewed that abdominal CT and results, which I agree with it is essentially negative for any acute including pancreatitis radiographically. His elevated lipase may be due to GI issue. I think the most likely reason for his symptoms is alcoholic gastritis, he was drinking hard liquor the night before all this started which he does not usually do. I am going to recommend a bland diet for the next 2 to 3 days, he is already on pantoprazole, will also prescribe dicyclomine because he is having cramping, Zofran, and Carafate he is comfortable with that plan of following up. Lab Data Attestation: I reviewed the patient's lab results. Labs: Laboratory Results - last 24 hr 11/22/24 11/22/24 09:33 09:40 WBC 6.0 RBC 5.62 Hgb 15.5 Hct 45.9 MCV 81.7 MCH 27.6 MCHC 33.8 RDW Std Deviation 40.9 RDW Coeff of Hari 14.0 Plt Count 251 MPV 10.2 Immature Gran % (Auto) 0.300 Neut % (Auto) 50.8 Lymph % (Auto) 38.7 Rankin % (Auto) 9.2 Eos % (Auto) 0.3 Baso % (Auto) 0.7 Absolute Neuts (auto) 3.0 Absolute Lymphs (auto) 2.30 Nucleated RBC % 0 Sodium 137 Potassium 3.7 Chloride 102 Carbon Dioxide 22.0 Anion Gap 12 BUN 10 Creatinine 1.09 Estim Creat Clear Calc 93.02 Est GFR (MDRD) Non-Af 88 BUN/Creatinine Ratio 9.2 L Glucose 111 H Calcium 9.8 Total Bilirubin 0.49 AST 22 ALT 23 Alkaline Phosphatase 52 Total Protein 7.5 Albumin 4.7 Globulin 2.8 Albumin/Globulin Ratio 1.6 Lipase 83 H Urine Color Yellow Urine Clarity Cloudy Urine pH 7.0 Ur Specific [place] 1.015 Urine Protein 30 H Urine Glucose (UA) Normal Urine Ketones Negative Urine Occult Blood Negative Urine Nitrite Negative Urine Bilirubin Negative Urine Urobilinogen Normal Ur Leukocyte Esterase Negative Urine RBC 0 SEEN Urine WBC 0 SEEN Ur Squamous Epith Cells 0-5 SEEN Amorphous Sediment 3+ Urine Bacteria 0 SEEN Urine Mucus 0 SEEN Radiography Diagnostic Testing: Clinical Impression(s) from Imaging Studies Abdomen Ultrasound 11/22/24 08:33 IMPRESSION: No acute findings in the right upper quadrant. Reading Location: [facility] Abdomen/Pelvis CT 11/22/24 10:45 IMPRESSION: 1. No CT evidence of acute pancreatitis. No pseudocyst or abscess. No perforation. 2. Hepatomegaly with fatty infiltration. 3. Fecal retention in the colon consistent with constipation. Reading Location: [facility] Discharge Plan Triage Chief Complaint: Nausea/Vomiting ED Provider: Davidson Infante Dx/Rx/DC Orders Clinical Impression: Acute alcoholic gastritis without hemorrhage Instructions: ED Diet, [place] (Adult), ED Gastritis Ulcer No Abx Prescriptions: New sucralfate [Carafate] 1 gram tablet 1 g PO TID 7 Days Qty: 21 0RF ondansetron 8 mg tablet,disintegrating 8 mg PO Q8H PRN (Reason: nausea and vomiting) Qty: 20 0RF dicyclomine 20 mg tablet 20 mg PO Q6H PRN PRN (Reason: abdominal discomfort) Qty: 20 0RF Continued pantoprazole 40 mg tablet,delayed release (DR/EC) 40 mg PO DAILY Qty: 30 0RF Discontinued ondansetron 4 mg tablet,disintegrating 4 mg PO Q8H PRN (Reason: Nausea) Primary Care Provider: Denny Benton Referrals: Denny Betnon MD [Primary Care Provider] - 3-5 Days if not improving Print Language: Sammarinese Disposition Disposition: Home, Self Care
[2024-11-22] MEDS: 0.9% Normal Saline (1000mL) 1,000 ML 999 ML IV (09:34)
[2024-11-22] MEDS: Metoclopramide 10 MG/2 ML Vial 5 MG IV (09:35)
[2024-11-22] MEDS: Morphine 4 MG/ML Syringe IV (09:35)
[2024-11-22] MEDS: Ondansetron 4 MG/2 ML Vial IV (09:35)
[2024-11-22 09:43] LABS: Basophil# 0.04 X10^3/uL; Basophil% 0.7 % (0-1); Eosinophil# 0.02 X10^3/uL; Eosinophils% 0.3 % (0-5); Hematocrit 45.9 % (40-54); Hemoglobin 15.5 g/dL (13.0-16.5); Lymphocyte % 38.7 % (19-41); Mean Corp Hgb Conc 33.8 g/dL (32-36); Mean Corpuscular Hgb 27.6 pg (27.0-32.0); Mean Corpuscular Volume 81.7 fL (80-94); Mean Platelet Vol. 10.2 fl (6.2-12.0); Monocyte# 0.55 X10^3/uL; Monocyte% 9.2 % (0-10); NRBC Flagged by Analyzer 0 % (0-5); Neutrophil # 3.02 X10^3/uL (2.7-7.7); Neutrophil % 50.8 % (47-70); Platelet Count 251 K/mm3 (150-450); RBC Distribution Width SD 40.9 fl (35.1-43.9); Red Blood Count 5.62 M/mm3 (4.6-6.2)
[2024-11-22 09:46] LABS: Bacteria 0 SEEN /hpf (None Seen); Mucous, Urine 0 SEEN /hpf (<or=2+); Red Blood Cells-Urine 0 SEEN /hpf (0-5); White Blood Cells 0 SEEN /hpf (0-5)
[2024-11-22 09:53] LABS: Color, Urine Yellow (Yellow); Glucose, Dipstick Normal (Normal); Ketone-Dipstick Negative (Negative); Leukocyte Esterase-Dipstick Negative /ul (Negative); Nitrite-Dipstick Negative (Negative); Occult Blood-Urine Negative /ul (Negative); Protein-Dipstick 30 mg/dl (Negative); Specific Gravity, Urine 1.015 (1.002-1.030); Urine Bilirubin Dipstick Negative (Negative); Urine Clarity Cloudy (Clear); Urine Urobilinogen Normal (Normal)
[2024-11-22 09:59] LABS: Squamous Epithelial Cells - UA 0-5 SEEN /hpf (0-5)
[2024-11-22 10:00] LABS: Amorphous Sediment 3+
[2024-11-22 10:09] VITALS: RESP 16; O2SAT 96
[2024-11-22 10:33] LABS: Lipase 83 U/L (13-75)
[2024-11-22 10:35] LABS: ALB/GLOB Ratio 1.6 RATIO (0.9-2.4); AST(SGOT) 22 U/L (<=37); Alanine Aminotransfer ALT/SGPT 23 U/L (<=46); Albumin, Serum 4.7 g/dL (3.5-5.0); Alkaline Phosphatase 52 U/L (40-129); Anion Gap 12 (5-15); BUN 10 mg/dL (4-19); BUN/Creat Ratio 9.2 RATIO (10-20); Calcium,Total 9.8 mg/dL (7.6-11.0); Chloride 102 mmol/L (98-108); Creatinine, Serum 1.09 mg/dL (0.70-1.20); EST Glomerular Filtration Rate 88 (>60); Estimated Creatinine Clearance 93.02 ml/min (50-250); Globulin 2.8 g/dL (2.2-4.2); Glucose 111 mg/dL (70-99); Potassium 3.7 mmol/L (3.3-5.1); Protein, Total 7.5 g/dL (5.9-8.4); Sodium Level 137 mmol/L (133-145); Total Bilirubin 0.49 mg/dL (0.00-1.30)
--- NOTE | 2024-11-22 10:45 | CT_ITS ---
EXAM: CT Abdomen and Pelvis With Intravenous Contrast CLINICAL INDICATION: UPPER ABD PAIN, N/V, BARELY ELEVATED LIPASE TECHNIQUE: Axial computed tomography images of the abdomen and pelvis with intravenous contrast. This CT exam was performed using one or more of the following dose reduction techniques: automated exposure control, adjustment of the mA and/or kV according to patient size, and/or use of iterative reconstruction technique. COMPARISON: CT Abdomen Pelvis dated 08/29/2022 FINDINGS: LUNG BASES: Unremarkable. No mass. No consolidation. ABDOMEN: LIVER: Hepatomegaly with fatty infiltration. GALLBLADDER AND BILE DUCTS: Unremarkable. No calcified stones. No ductal dilation. PANCREAS: Unremarkable. No ductal dilation. No CT evidence of acute pancreatitis. No pseudocyst or abscess. No perforation. SPLEEN: Unremarkable. No splenomegaly. ADRENALS: Unremarkable. No mass. KIDNEYS AND URETERS: Simple subcentimeter left renal cyst. No hydronephrosis. STOMACH AND BOWEL: Fecal retention in the colon consistent with constipation. No obstruction. No mucosal thickening. PELVIS: APPENDIX: No findings to suggest acute appendicitis. BLADDER: Unremarkable. No mass. REPRODUCTIVE: Unremarkable as visualized. ABDOMEN and PELVIS: INTRAPERITONEAL SPACE: Unremarkable. No free air. No significant fluid collection. BONES/JOINTS: No acute fracture. No dislocation. SOFT TISSUES: Unremarkable. VASCULATURE: Unremarkable. No abdominal aortic aneurysm. LYMPH NODES: Unremarkable. No enlarged lymph nodes. CT/Abdomen/Pelvis W IV Cont ONLY IMPRESSION: 1. No CT evidence of acute pancreatitis. No pseudocyst or abscess. No perfor ation. 2. Hepatomegaly with fatty infiltration. 3. Fecal retention in the colon consistent with constipation. Reading Location: [id number]
[2024-11-22 11:58] VITALS: BP 154/91; PULSE 71; RESP 16; TEMP 37.2; O2SAT 96
== END 2024-11-22 11:59 | disposition home or self-care (01) ==
PROVIDERS: Emergency Provider Emergency Medicine; PCP Family Medicine; Visit Provider Emergency Medicine
DX: K29.20 Alcoholic gastritis without bleeding (principal); M54.9 Dorsalgia, unspecified; R74.8 Abnormal levels of other serum enzymes; F17.210 Nicotine dependence, cigarettes, uncomplicated
CPT/HCPCS: 74177; 76705; 80053; 81001; 83690; 85025; 96361; 96374; 99283; Q9967; A4216; J2405